=== PATIENT | female | born 1970 ===

== ENCOUNTER 2017-08-11 22:50 | Inpatient (IN) | payer MEDICAID, SELFPAY ==
--- NOTE | 2017-08-11 23:03 | ED PDOC ---
Arrival/HPI - General Time Seen by Provider: 08/11/17 22:57 Historian: Patient - History of Present Illness Narrative History of Present Illness (Text): 08/11/17 23:01 47 year old female, whose past medical history includes multiple pulmonary embolism (on Lovenox 130mg twice daily), kidney stones, Cholecystectomy, Appendectomy, and asthma, presents to the emergency department complaining of couple episodes of vomiting earlier today with some scanty amount of blood in vomit. Patient tonight is complaining of chest discomfort radiating to the back at times associated with occasional shortness of breath. Patient describes the chest discomfort as a sharp like sensation. She denies any drug use. Patient denies any fever, chills, nausea, diarrhea, urinary symptoms, back pain, neck pain, headache, dizziness, or any other complaints. PMD: Dr. Ofelia Babcock Symptom Onset: Gradual Symptom Course: Unchanged Activities at Onset: Light Context: Work Past Medical History - Provider Review Nursing Documentation Reviewed: Yes - Infectious Disease Hx of Infectious Diseases: None - Tetanus Immunization Tetanus Immunization: Up to Date - Cardiac Hx Atrial Fibrillation: No Hx Coronary Artery Disease: No Hx Cardiac Arrhythmia: No Hx Congestive Heart Failure: No Hx Hypertension: No Hx Mitral Valve Prolapse: No Hx Pacemaker: No Hx Peripheral Edema: No - Pulmonary Hx Asthma: Yes Hx Bronchitis: No Hx Chronic Obstructive Pulmonary Disease (COPD): No Hx Emphysema: No Hx Pneumonia: No Hx Pulmonary Embolism: Yes (x11) Hx Sleep Apnea: No - Neurological Hx Alzheimer's Disease: No Hx Dementia: No Hx Migraine: No Hx Multiple Sclerosis: No Hx Parkinson's Disease: No Hx Seizures: No Hx Transient Ischemic Attacks (TIA): No - HEENT Hx HEENT Disorder: No Hx Blind: No Hx Cataracts: No Hx Deafness: No Hx Difficulty Chewing: No Hx Epistaxis: No Hx Glaucoma: No Hx Macular Degeneration: No - Renal Hx Renal Disorder: Yes Hx Kidney Stones: Yes - Endocrine/Metabolic Hx Hyperthyroidism: No Hx Hypothyroidism: No - Hematological/Oncological Hx Anemia: No Hx Sickle Cell Disease: No - Integumentary Hx Dermatological Disorder: No Hx Basal Cell Carcinoma: No Hx Joe: No Hx Cellulitis: No Hx Eczema: No Hx Melanoma: No Hx Psoriasis: No Hx Squamous Cell Carcinoma: No - Musculoskeletal/Rheumatological Hx Arthritis: No Hx Fractures: No Hx Osteoporosis: No Hx Rheumatoid Arthritis: No - Gastrointestinal Hx Crohn's Disease: No Hx Diverticulitis: No Hx Gall Bladder Disease: Yes Hx Gastritis: No Hx Pancreatitis: No - Genitourinary/Gynecological Hx Sexually Transmitted Diseases: No - Psychiatric Hx Anxiety: No Hx Bipolar Disorder: No Hx Depression: No Hx Paranoia: No Hx Post Traumatic Stress Disorder: No Hx Schizophrenia: No Hx Substance Use: No - Surgical History Hx Appendectomy: Yes Hx Carotid Endarterectomy: No Hx Cholecystectomy: Yes Hx Coronary Artery Bypass Graft: No Hx Coronary Stent: No Hx Tonsillectomy: No - Anesthesia Hx Anesthesia: Yes Hx Anesthesia Reactions: No Hx Malignant Hyperthermia: No - Suicidal Assessment Feels Threatened In Home Enviroment: No Family/Social History - Physician Review Nursing Documentation Reviewed: Yes Family/Social History: No Known Family HX Smoking Status: Never Smoked Hx Alcohol Use: No Hx Substance Use: No Hx Substance Use Treatment: No Allergies/Home Meds Allergies/Adverse Reactions: Allergies iodixanol Allergy (Severe, Verified 07/18/17 00:04) SHORTNESS OF BREATH acetaminophen [From Percocet] Allergy (Verified 07/18/17 04:08) RASH Iodine and Iodide Containing Produc Allergy (Verified 07/18/17 00:04) SHORTNESS OF BREATH ketorolac Allergy (Verified 07/18/17 00:04) ITCHING morphine Allergy (Verified 07/18/17 00:04) RASH NSAIDS (Non-Steroidal Anti-Inflamma Allergy (Verified 07/18/17 00:04) ITCHING ondansetron Allergy (Verified 07/18/17 00:04) ITCHING oxycodone [From Percocet] Allergy (Verified 07/18/17 04:08) RASH Home Medications: Home Meds Medication Instructions Recorded Confirmed Enoxaparin [Lovenox] 120 mg SQ BID 08/12/17 08/12/17 Review of Systems - Physician Review All systems were reviewed & negative as marked: Yes - Review of Systems Constitutional: absent: Fevers, Other (Chills) Respiratory: SOB Cardiovascular: Chest Pain Gastrointestinal: Vomiting, Hematemesis. absent: Diarrhea, Nausea Genitourinary Female: absent: Dysuria, Frequency, Hematuria Musculoskeletal: absent: Back Pain, Neck Pain Neurological: absent: Headache, Dizziness Physical Exam Vital Signs Reviewed: Yes Vital Signs Temp Pulse Pulse Resp BP Pulse Ox 08/12/17 02:00 98 H 18 132/88 98 08/12/17 00:56 82 20 108/56 L 100 08/11/17 23:20 135 H 122/64 08/11/17 23:03 113 H 08/11/17 22:56 99.1 F 126 H 24 116/66 97 Temperature: Afebrile Blood Pressure: Normal Pulse: Tachycardic Respiratory Rate: Normal Appearance: Positive for: Well-Appearing, Non-Toxic, Comfortable Pain Distress: None Mental Status: Positive for: Alert and Oriented X 3 - Systems Exam Head: Present: Atraumatic, Normocephalic Pupils: Present: PERRL Extroacular Muscles: Present: EOMI Conjunctiva: Present: Normal Mouth: Present: Moist Mucous Membranes Neck: Present: Normal Range of Motion Respiratory/Chest: Present: Clear to Auscultation (Lungs clear bilaterally ), Good Air Exchange. No: Respiratory Distress, Accessory Muscle Use Cardiovascular: Present: Tachycardic. No: Murmurs Abdomen: Present: Normal Bowel Sounds. No: Tenderness, Distention, Peritoneal Signs, Rebound, Guarding Back: Present: Normal Inspection Upper Extremity: Present: Normal Inspection. No: Cyanosis, Edema Lower Extremity: Present: Normal Inspection. No: Edema, CALF TENDERNESS, Ryan' s Sign, Swelling Neurological: Present: GCS=15, CN II-XII Intact, Speech Normal Skin: Present: Warm, Dry, Normal Color. No: Rashes Psychiatric: Present: Alert, Oriented x 3, Normal Insight, Normal Concentration Medical Decision Making ED Course and Treatment: 08/11/17 23:02 Impression: 47 year old female presents complaining of couple episodes of vomiting earlier today with some hematemesis Patient tonight is complaining of chest discomfort radiating to the back at times associated with occasional shortness of breath. Differential Diagnosis included but are not limited to: Pulmonary Embolism VS CAD VS Pneumonia VS Asthma VS GI Bleed Plan: -- Labs -- EKG -- Chest X-ray -- Lopressor, Protonix Inj, Reglan, IV Fluids -- Lung Perf & Vent Scan -- Reassess and disposition Prior Visits: Notes and results from previous visits were reviewed. Patient has had similar symptoms in the recent past. Patient is unable to undergo CT scan of chest with IV Contrast due to the need of prior 24 hour medication. Progress Notes: Patient unable to undergo CT scan of chest with IV contrast due to need of prior 24 hour medication. Patient states she had negative VQ scans. 08/11/17 23:26 EKG shows Sinus Tachycardia at 130 BPM with LVH. Non-specific ST/T changes. Interpreted by me. 08/12/17 00:39 CXR Impression: As read by me, no acute process. 08/12/17 02:15 Cause discussed with Stucco Applicator and Dr. Newton Taylor who is aware and agrees with the plan. Accepts patient into hospitalist service for chest pain. EXAM: NM Lung Perfusion and Ventilation Scan Dictated and Authenticated by: Beckie Arevalo MD 08/12/2017 2:40 AM IMPRESSION: No acute findings. - Lab Interpretations Lab Results: 08/11/17 23:17 08/11/17 23:17 Lab Results 08/11/17 23:17: Sodium 141, Potassium 3.1 L, Chloride 105, Carbon Dioxide 19 L, Anion Gap 21 H, BUN 15, Creatinine 0.6 L, Est GFR ( Amer) > 60, Est GFR ( Non-Af Amer) > 60, Random Glucose 139 H, Calcium 9.6, Total Bilirubin 0.6, AST 25, ALT 25, Alkaline Phosphatase 67, Lactate Dehydrogenase 511, Total Creatine Kinase < 20 L, Troponin I < 0.01, Total Protein 7.2, Albumin 4.4, Globulin 2.8, Albumin/Globulin Ratio 1.6 08/11/17 23:17: WBC 13.7 H D, RBC 4.88, Hgb 11.4 L, Hct 35.7 L, MCV 73.2 L, MCH 23.4 L, MCHC 31.9, RDW 16.3 H, Plt Count 544 H, MPV 9.8 08/11/17 23:17: PT 12.1, INR 1.06, APTT 29.9, D-Dimer, Quantitative TNP I have reviewed the lab results: Yes - RAD Interpretation Radiology Orders: 08/11/17 23:02 CHEST PORTABLE [RAD] Stat 08/11/17 23:18 LUNG PERF & VENT SCAN [NM] Stat - EKG Interpretation Interpreted by ED Physician: Yes Type: 12 lead EKG - Medication Orders Current Medication Orders: Enoxaparin Sodium (Lovenox) 120 mg SC BID BRIGITTE PRN Reason: Protocol Sodium Chloride (Sodium Chloride 0.9%) 1,000 mls @ 100 mls/hr IV .Q10H BRIGITTE Last Admin: 08/11/17 23:48 Dose: 100 mls/hr eMAR Start Stop Document 08/11/17 23:48 LEOBARDO (Rec: 08/11/17 23:48 [id number][facility] Intravenous Solution Start Date 08/11/17 Start Time 23:48 Famotidine (Pepcid 20mg/50ml Premix) 50 mls @ 100 mls/hr IV Q12 BRIGITTE Discontinued Medications Metoclopramide HCl (Reglan) 10 mg IVP ONCE ONE Stop: 08/11/17 23:21 Last Admin: 08/11/17 23:47 Dose: 10 mg IVP Administration Document 08/11/17 23:47 LEOBARDO (Rec: 08/11/17 23:47 [id number] Charges for Administration # of IVP Administrations 1 Metoprolol Tartrate (Lopressor) 5 mg IVP STAT STA Stop: 08/11/17 23:10 Last Admin: 08/11/17 23:20 Dose: 5 mg IVP Administration Document 08/11/17 23:20 LEOBARDO (Rec: 08/11/17 23:46 [id number]) Charges for Administration # of IVP Administrations 1 MAR Pulse and Blood Pressure Document 08/11/17 23:20 LEOBARDO (Rec: 08/11/17 23:46 [id number]) Pulse Pulse Rate (60-90 beats/min) 135 Blood Pressure Blood Pressure (100/60-150/90 mm Hg) 122/64 Morphine Sulfate (Morphine) 2 mg IVP STAT STA Stop: 08/11/17 23:45 Last Admin: 08/11/17 23:54 Dose: 2 mg MAR Pain Assessment Document 08/11/17 23:54 LEOBARDO (Rec: 08/11/17 23:55 [facility] [id number]) Pain Reassessment Is this a pain reassessment? No IVP Administration Document 08/11/17 23:54 LEOBARDO (Rec: 08/11/17 23:55 [id number]) Charges for Administration # of IVP Administrations 1 Morphine Sulfate (Morphine) 2 mg IVP STAT STA Stop: 08/12/17 00:46 Last Admin: 08/12/17 00:53 Dose: 2 mg MAR Pain Assessment Document 08/12/17 00:53 LEOBARDO (Rec: 08/12/17 00:53 [id number]) Pain Reassessment Is this a pain reassessment? Yes IVP Administration Document 08/12/17 00:53 LEOBARDO (Rec: 08/12/17 00:53 [id number]) Charges for Administration # of IVP Administrations 1 Morphine Sulfate (Morphine) 2 mg IVP STAT STA Stop: 08/12/17 02:07 Last Admin: 08/12/17 02:14 Dose: 2 mg MAR Pain Assessment Document 08/12/17 02:14 LEOBARDO (Rec: 08/12/17 02:15 [id number]) Pain Reassessment Is this a pain reassessment? No IVP Administration Document 08/12/17 02:14 LEOBARDO (Rec: 08/12/17 02:15 [facility] [id number]) Charges for Administration # of IVP Administrations 1 Pantoprazole Sodium (Protonix Inj) 40 mg IVP ONCE STA Stop: 08/11/17 23:08 Last Admin: 08/11/17 23:46 Dose: 40 mg IVP Administration Document 08/11/17 23:46 LEOBARDO (Rec: 08/11/17 23:47 [facility] [id number]) Charges for Administration # of IVP Administrations 1 Potassium Chloride (K-Dur 20 Meq Er Tab) 40 meq PO STAT STA Stop: 08/12/17 00:39 Last Admin: 08/12/17 02:16 Dose: 40 meq - Scribe Statement The provider has reviewed the documentation as recorded by the Leon Hicks Provider Scribe Attestation: All medical record entries made by the Leon were at my direction and personally dictated by me. I have reviewed the chart and agree that the record accurately reflects my personal performance of the history, physical exam, medical decision making, and the department course for this patient. I have also personally directed, reviewed, and agree with the discharge instructions and disposition. Disposition/Present on Arrival - Present on Arrival Any Indicators Present on Arrival: No History of DVT/PE: Yes History of Uncontrolled Diabetes: No Urinary Catheter: No History of Decub. Ulcer: No History Surgical Site Infection Following: None - Disposition Have Diagnosis and Disposition been Completed?: Yes Diagnosis: Chest pain, Hematemesis/vomiting blood Disposition: HOSPITALIZED Disposition Time: 02:18 Patient Problems: Current Active Problems Problem Status Onset Chest pain Acute 10/22/13 Hematemesis/vomiting blood Acute Condition: STABLE
[2017-08-11] MEDS ORDERED: Metoprolol 1 mg/ml Inj IVP STA (23:09)
[2017-08-11] MEDS ORDERED: Morphine 4 mg/ml ISec IVP STA (23:44)
[2017-08-11] MEDS: Sodium Chloride 0.9% 1,000 ML IV SCH (23:48)
[2017-08-11] MEDS ORDERED: Morphine 4 mg/ml ISec ONE (23:50)
[2017-08-11 23:53] LABS: HEMOGLOBIN 11.4 g/dL (12.0-16.0); MEAN CELL VOLUME 73.2 fl (80.0-105.0); MEAN CORPUSCULAR HEMOGLOBIN 23.4 pg (25.0-35.0); MEAN CORPUSCULAR HGB CONC 31.9 g/dl (31.0-37.0); MEAN PLATELET VOLUME 9.8 fl (7.0-11.0); RBC 4.88 10^6/uL (3.5-6.1); RED CELL DISTRIBUTION WIDTH 16.3 % (11.5-14.5); WHITE BLOOD COUNT 13.7 10^3/ul (4.5-11.0)
[2017-08-12 00:04] LABS: ALB/GLOB RATIO 1.6 (1.1-1.8); ALBUMIN 4.4 g/dL (3.0-4.8); ALT/SGPT 25 U/L (7-56); AST/SGOT 25 U/L (14-36); BLOOD UREA NITROGEN 15 mg/dL (7-21); CALCIUM 9.6 mg/dL (8.4-10.5); GFR AFRICAN-AMERICAN > 60; GFR NON-AFRICAN AMERICAN > 60
[2017-08-12 00:07] LABS: INR 1.06 (0.93-1.08); PROTHROMBIN TIME 12.1 SECONDS (9.4-12.5)
[2017-08-12 00:08] LABS: PARTIAL THROMBOPLASTIN TIME 29.9 Seconds (25.1-36.5)
[2017-08-12 00:15] LABS: TROPONIN I < 0.01 ng/mL
[2017-08-12] MEDS ORDERED: Potassium Chloride 20 mEq ER Tab PO STA (00:38)
[2017-08-12] MEDS ORDERED: Morphine 4 mg/ml ISec IVP STA ×2 (00:45→02:06)
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
[2017-08-12 03:48] VITALS: BMI 48.4
[2017-08-12] MEDS: Morphine 4 mg/ml ISec IVP PRN ×4 (04:10→21:28)
[2017-08-12] MEDS ORDERED: Morphine 2 mg/ml ISec IM STA (08:49)
[2017-08-12] MEDS ORDERED: Morphine 4 mg/ml ISec IVP PRN (08:50)
--- NOTE | 2017-08-12 08:50 | RAD ---
HISTORY: pain COMPARISON: Chest 07/12/2014 FINDINGS: LUNGS: No active pulmonary disease. PLEURA: No significant pleural effusion identified, no pneumothorax apparent. CARDIOVASCULAR: Normal. OSSEOUS STRUCTURES: No significant abnormalities. VISUALIZED UPPER ABDOMEN: Normal. OTHER FINDINGS: Previously noted right subclavian central line has been removed IMPRESSION: No active disease.
[2017-08-12] MEDS: Sodium Chloride 0.9% 1,000 ML IV SCH ×2 (09:10→19:52)
[2017-08-12] MEDS ORDERED: Morphine 4 mg/ml ISec IV STA (09:12)
[2017-08-12] MEDS ORDERED: Morphine 4 mg/ml ISec IM STA (09:14)
[2017-08-12 09:16] LABS: BASO # 0.04 K/mm3 (0.0-2.0); BASO % 0.4 % (0.0-3.0); EOS # 0.5 (0.0-0.7); EOS % 4.3 % (1.5-5.0); GRAN # 7.52 (1.4-6.5); GRAN % 66.7 % (50.0-68.0); HEMOGLOBIN 10.3 g/dL (12.0-16.0); LYMPH % 17.4 % (22.0-35.0); MEAN CELL VOLUME 73.6 fl (80.0-105.0); MEAN CORPUSCULAR HEMOGLOBIN 23.2 pg (25.0-35.0); MEAN CORPUSCULAR HGB CONC 31.5 g/dl (31.0-37.0); MEAN PLATELET VOLUME 9.3 fl (7.0-11.0); MONO # 1.3 (0.1-0.6); MONO % 11.2 % (1.0-6.0); RBC 4.44 10^6/uL (3.5-6.1); RED CELL DISTRIBUTION WIDTH 16.4 % (11.5-14.5); WHITE BLOOD COUNT 11.3 10^3/ul (4.5-11.0)
[2017-08-12 09:26] LABS: IRON 34 ug/dL (45-180)
[2017-08-12 09:29] LABS: ALB/GLOB RATIO 1.5 (1.1-1.8); ALBUMIN 3.7 g/dL (3.0-4.8); ALT/SGPT 53 U/L (7-56); AST/SGOT 39 U/L (14-36); BLOOD UREA NITROGEN 11 mg/dL (7-21); CALCIUM 8.8 mg/dL (8.4-10.5); GFR AFRICAN-AMERICAN > 60; GFR NON-AFRICAN AMERICAN > 60
[2017-08-12 09:35] LABS: % IRON SATURATION 7 % (20-55); TOTAL IRON BINDING CAPACITY 456 ug/dL (265-497)
[2017-08-12 09:39] LABS: TROPONIN I < 0.01 ng/mL
[2017-08-12 09:46] LABS: INR 1.06 (0.93-1.08); PROTHROMBIN TIME 12.2 SECONDS (9.4-12.5)
--- NOTE | 2017-08-12 09:48 | CARD ---
APPROVED REPORT EKG Measurement Heart [id number] <Conclusion> Sinus tachycardia Left ventricular hypertrophy STTW changes c/w ischemia
--- NOTE | 2017-08-12 09:52 | CARD ---
APPROVED REPORT EKG Measurement Heart [id number] <Conclusion> Normal sinus rhythm Voltage criteria for left ventricular hypertrophy Improved repolarization c/w ECG 08/11/17
[2017-08-12] MEDS ORDERED: Famotidine 20mg/50ml 20 MG/50 ML BAG IV SCH (10:00)
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
[2017-08-12 12:16] LABS: FERRITIN 14.2 ng/mL
[2017-08-12 13:50] LABS: FOLATE 16.1 ng/mL
[2017-08-12] MEDS: Sucralfate 1 gm/10 ml Oral Susp UD PO SCH ×3 (14:15→21:28)
[2017-08-12] MEDS: Enoxaparin 120 mg Syringe SC SCH (21:27)
[2017-08-13] MEDS: Sodium Chloride 0.9% 1,000 ML IV SCH ×2 (05:40→16:15)
[2017-08-13] MEDS: Morphine 4 mg/ml ISec IVP PRN ×3 (07:25→19:32)
--- NOTE | 2017-08-13 09:35 | CARD ---
APPROVED REPORT EKG Measurement Heart [id number] [id number] <Conclusion> Normal sinus rhythm Voltage criteria for left ventricular hypertrophy No change
[2017-08-13] MEDS: Sucralfate 1 gm/10 ml Oral Susp UD PO SCH ×4 (10:02→22:12)
[2017-08-13] MEDS: Enoxaparin 120 mg Syringe SC SCH ×2 (10:02→22:12)
--- NOTE | 2017-08-13 14:41 | CP.PCM.PN ---
<Miriam Ramesh - Last Filed: 08/13/17 14:37> Subjective - Date & Time of Evaluation Date of Evaluation: 08/13/17 Time of Evaluation: 14:37 - Subjective Subjective: Miriam Ramesh, PGY1, Progress Note for Dr Spears: Patient seen and examined at bedside. Pt complains of persistent left sided chest pain, denies hemoptysis, cough, palpitations. States that its "likely from PE." States that she previously had low probability on V/Q scan, but turned out to be PE on CTA, therefore she requests to have CTA. Denies diaphoresis, sob, fevers, chills, dizziness, abdominal pain, swelling. Objective - Vital Signs/Intake and Output Vital Signs (last 24 hours): Temp Pulse Resp BP Pulse Ox 98.2 F 110 H 20 119/63 98 08/13/17 12:00 08/13/17 14:00 08/13/17 12:00 08/13/17 12:00 08/13/17 10:02 - Medications Medications: Current Medications Diphenhydramine HCl (Benadryl) 50 mg IVP ONCE ONE Stop: 08/14/17 12:01 Enoxaparin Sodium (Lovenox) 120 mg SC Q12 [facility] PRN Reason: Protocol Last Admin: 08/13/17 10:02 Dose: 120 mg Famotidine (Pepcid) 40 mg PO HS [facility] Last Admin: 08/12/17 21:28 Dose: 40 mg Sodium Chloride (Sodium Chloride 0.9%) 1,000 mls @ 100 mls/hr IV .Q10H [facility] Last Admin: 08/13/17 05:40 Dose: 100 mls/hr Metoclopramide HCl (Reglan) 5 mg IVP ACHS [facility] Last Admin: 08/13/17 11:58 Dose: 5 mg Morphine Sulfate (Morphine) 2 mg IVP Q6H PRN PRN Reason: Pain, severe (8-10) Last Admin: 08/13/17 13:35 Dose: 2 mg Pantoprazole Sodium (Protonix Inj) 40 mg IVP DAILY [facility] Last Admin: 08/13/17 10:02 Dose: 40 mg Prednisone (Prednisone Tab) 50 mg PO Q6H [facility] Stop: 08/14/17 12:01 Sucralfate (Carafate Oral Susp) 1 gm PO QID [facility] Last Admin: 08/13/17 13:35 Dose: 1 gm - Labs Labs: PT 12.2 SECONDS (9.4-12.5) 08/12/17 08:00 INR 1.06 (0.93-1.08) 08/12/17 08:00 APTT 29.9 Seconds (25.1-36.5) 08/11/17 23:17 - Constitutional Appears: Non-toxic, No Acute Distress - Head Exam Head Exam: ATRAUMATIC, NORMOCEPHALIC - Eye Exam Eye Exam: EOMI, PERRL, Scleral icterus. absent: Conjunctival injection, Nystagmus Pupil Exam: NORMAL ACCOMODATION, PERRL. absent: Fixed, Irregular, Unequal - ENT Exam ENT Exam: Mucous Membranes Moist - Neck Exam Neck Exam: Full ROM - Respiratory Exam Respiratory Exam: Clear to Ausculation Bilateral, NORMAL BREATHING PATTERN. absent: Accessory Muscle Use, Rhonchi, Wheezes, Stridor - Cardiovascular Exam Cardiovascular Exam: RRR, +S1, +S2. absent: Murmur - GI/Abdominal Exam GI & Abdominal Exam: Soft, Normal Bowel Sounds. absent: Firm, Guarding, Rigid, Tenderness, Mass, Organomegaly, Rebound - Extremities Exam Extremities Exam: Full ROM. absent: Calf Tenderness, Pedal Edema - Back Exam Back Exam: NORMAL INSPECTION - Neurological Exam Neurological Exam: Alert, Awake, Oriented x3 - Psychiatric Exam Psychiatric exam: Agitated - Skin Skin Exam: Dry, Normal Color, Warm Assessment and Plan - Assessment and Plan (Free Text) Assessment: 47 year old female with past medical history of pulmonary embolism, asthma, on Lovenox therapy at home, presents for chest pain, ACS ruled out. V/Q scan shows low probablity of PE, pt complains of persistent cp. Pt allergic to IV contrast dye, scheduled to be premedicated with prednisone 50 mg x3 and benadryl prior to CTA (at 1 PM; will need to follow up with in house radiologist on Monday at 8 AM for his approval): Chest Pain: 2/2 pain medication seeking vs PE, ruled out ACS - Patient with history of PE - EKG on presentation showing Sinus Tachycardia at 130 BPM with LVH. Non- specific ST/T changes - trops negx3 - Patient allergic to ASA - Morphine tapered down to 1mg Q6H PRN severe pain - Lovenox 120mg BID - Multiple PE reported by patient - Most recent hospitalization for PE was 01/2017 - VQ scan low probability. Scheduled for CTA tomorrow - Etiology undetermined by patient, previous work up includes but not limited to Antithrombin III levels normal (09/02/16) Protein C and S normal levels (07/11/16) Lupus anticoagulant not detected (09/2016) Factor V activity nml (09/02/2016) Hemoptysis: likely Elise shelia tear - resolved - GI consulted. states likely elise jamil tear as pt has history - prior EGD in 04/2017 in [place] showing gastritis - Sucralfate, pepcid Anemia - microcytic with elevated RDW - Iron studies show low iron, low normal ferritin, %sat<7% - iron deficiency anemia - MCV 73 - Hgb stable - previous thalassemia work up is negative - monitor - start feosol DVT ppx: Lovenox GI ppx: pepcid Case and plan discussed with attending Dr Spears. Miriam Ramesh, PGY1 <Ngoc Spears - Last Filed: 08/13/17 15:06> Objective - Vital Signs/Intake and Output Vital Signs (last 24 hours): Temp Pulse Resp BP Pulse Ox 98.2 F 110 H 20 119/63 98 08/13/17 12:00 08/13/17 14:00 08/13/17 12:00 08/13/17 12:00 08/13/17 10:02 - Medications Medications: Current Medications Diphenhydramine HCl (Benadryl) 50 mg IVP ONCE ONE Stop: 08/14/17 12:01 Enoxaparin Sodium (Lovenox) 120 mg SC Q12 [facility] PRN Reason: Protocol Last Admin: 08/13/17 10:02 Dose: 120 mg Famotidine (Pepcid) 40 mg PO HS [facility] Last Admin: 08/12/17 21:28 Dose: 40 mg Ferrous Sulfate (Feosol) 324 mg PO DAILY [facility] Sodium Chloride (Sodium Chloride 0.9%) 1,000 mls @ 100 mls/hr IV .Q10H [facility] Last Admin: 08/13/17 05:40 Dose: 100 mls/hr Metoclopramide HCl (Reglan) 5 mg IVP ACHS [facility] Last Admin: 08/13/17 11:58 Dose: 5 mg Morphine Sulfate (Morphine) 1 mg IVP Q6H PRN PRN Reason: Pain, severe (8-10) Prednisone (Prednisone Tab) 50 mg PO Q6H [facility] Stop: 08/14/17 12:01 Sucralfate (Carafate Oral Susp) 1 gm PO QID [facility] Last Admin: 08/13/17 13:35 Dose: 1 gm - Labs Labs: PT 12.2 SECONDS (9.4-12.5) 08/12/17 08:00 INR 1.06 (0.93-1.08) 08/12/17 08:00 APTT 29.9 Seconds (25.1-36.5) 08/11/17 23:17 Attending/Attestation - Attestation I have personally seen and examined this patient.: Yes I have fully participated in the care of the patient.: Yes I have reviewed all pertinent clinical information, including history, physical exam and plan: Yes Notes (Text): 08/13/17 14:58 47 year old female with past medical history of pulmonary embolism on lovenox and asthma who presented with complaint of chest pain. Serial cardiac enzymes are negative and ACS has been ruled out. VQ scan shows low probability for PE. Patient still complains of symptoms and is requested CTA. Report allergy and will need to be premedicated. She reported nausea and ?hematemesis earlier, now resolved. Continue with PPI and diet as tolerated. She was seen by GI who okayed for lovenox to be resumed. She reports she had a recent EGD earlier this year. Ngoc Spears MD Hospitalist.
[2017-08-13] MEDS ORDERED: DiphenhydrAMINE 50 mg/ml Inj IVP STA (22:24)
[2017-08-14] MEDS: Morphine 4 mg/ml ISec IVP PRN ×2 (01:30→08:13)
[2017-08-14] MEDS: Sodium Chloride 0.9% 1,000 ML IV SCH ×3 (01:31→11:49)
[2017-08-14 09:11] LABS: BASO # 0.01 K/mm3 (0.0-2.0); BASO % 0.2 % (0.0-3.0); GRAN # 5.89 (1.4-6.5); GRAN % 89.1 % (50.0-68.0); HEMOGLOBIN 11.3 g/dL (12.0-16.0); LYMPH # 0.7 (1.2-3.4); LYMPH % 10.4 % (22.0-35.0); MEAN CELL VOLUME 73.6 fl (80.0-105.0); MEAN CORPUSCULAR HEMOGLOBIN 23.3 pg (25.0-35.0); MEAN CORPUSCULAR HGB CONC 31.7 g/dl (31.0-37.0); MEAN PLATELET VOLUME 9.3 fl (7.0-11.0); MONO % 0.3 % (1.0-6.0); RBC 4.84 10^6/uL (3.5-6.1); RED CELL DISTRIBUTION WIDTH 16.2 % (11.5-14.5); WHITE BLOOD COUNT 6.6 10^3/ul (4.5-11.0)
[2017-08-14 09:25] LABS: ALB/GLOB RATIO 1.5 (1.1-1.8); ALT/SGPT 31 U/L (7-56); AST/SGOT 12 U/L (14-36); BLOOD UREA NITROGEN 7 mg/dL (7-21); CALCIUM 9.2 mg/dL (8.4-10.5); GFR AFRICAN-AMERICAN > 60; GFR NON-AFRICAN AMERICAN > 60
[2017-08-14 09:30] LABS: INR 1.06 (0.93-1.08); PARTIAL THROMBOPLASTIN TIME 29.9 Seconds (25.1-36.5); PROTHROMBIN TIME 12.2 SECONDS (9.4-12.5)
[2017-08-14] MEDS: Sucralfate 1 gm/10 ml Oral Susp UD PO SCH ×4 (09:57→22:42)
[2017-08-14] MEDS: Enoxaparin 120 mg Syringe SC SCH ×2 (09:57→22:43)
[2017-08-14] MEDS ORDERED: DiphenhydrAMINE 50 mg/ml Inj IVP ONE (12:00)
[2017-08-14] MEDS ORDERED: Morphine 2 mg/ml ISec IVP PRN (12:31)
[2017-08-14] MEDS ORDERED: Morphine 2 mg/ml ISec IVP ONE (13:19)
--- NOTE | 2017-08-14 14:40 | CON ---
DATE: 08/14/2017 HISTORY OF PRESENT ILLNESS: The patient is a 47-year-old woman who presents with nausea and vomiting. She also complains of occasional chest discomfort which is worse during inspiration. PAST MEDICAL HISTORY: Notable for documented pulmonary embolism, in which she has been treated with Lovenox at home. She denies previous cardiac history. No previous coronary artery disease. Her stress test done several years ago was unremarkable. The patient's past medical history is also notable for sedentary life as well as morbid obesity. Negative diabetes mellitus. Negative hypertension. SOCIAL HISTORY: She denies smoking. REVIEW OF SYSTEMS: A 14-point review of systems is reviewed in detail. No cardiac symptomatology is noted other than the chest pain. PHYSICAL EXAMINATION: VITAL SIGNS: Blood pressure is 107/75, heart rate in the 70s, normal sinus rhythm. NECK: Negative JVD. LUNGS: Without rales. HEART: S1, S2. EXTREMITIES: Without edema. LABORATORY DATA: Troponin's are negative x3. Hemoglobin is 11.3. IMPRESSION: 1. Atypical chest pain. 2. Nausea and vomiting. 3. History of pulmonary embolism. 4. Morbid obesity. 5. Anemia. PLAN: Given these findings, it is unlikely her chest pain is cardiac in origin. There is no evidence for acute coronary syndrome. We will discontinue telemetry today. Once her present issues are resolved, the patient would benefit from an outpatient stress test given her cardiac risk factors. I discussed this with the patient in detail, she is agreeable. Solo Martinez MD
--- NOTE | 2017-08-14 15:06 | NM ---
COMPARISON: Portable chest TECHNIQUE: 30.0 mCi technetium 99-m DTPA aerosol. 3.2 mCI technetium 99-m MAA administered intravenously. FINDINGS: VENTILATION COMPONENT: Normal. PERFUSION COMPONENT: Normal. The report concurs with the preliminary [facility] report IMPRESSION: Lowprobability ventilation perfusion scan for pulmonary embolism.
--- NOTE | 2017-08-14 16:21 | CARD ---
APPROVED REPORT EXAM: Two-dimensional and M-mode echocardiogram with Doppler and color Doppler. INDICATION Chest Pain 2D DIMENSIONS Left Atrium (2D)4.8 (1.6-4.0cm)IVSd1.1 (0.7-1.1cm) LVDd4.7 (3.9-5.9cm)PWd1.2 (0.7-1.1cm) LVDs3.3 (2.5-4.0cm)FS (%) 30.5 % LVEF (%)58.0 (>50%) M-Mode DIMENSIONS Aortic Root3.30 (2.2-3.7cm)Aortic Cusp Exc.1.90 (1.5-2.0cm) Aortic Valve AoV Peak Ynedonwy038.0cm/[place] Peak GR.14mmHg Mitral Valve MV E Rbppdfsj240.0cm/sMV A Eghrfwlk01.6cm/sE/A ratio1.1 TDI Lateral E' Peak V11.50cm/sMedial E' Peak V7.31cm/sE/Lateral E'8.9 E/Medial E'14.0 Pulmonary Valve PV Peak Mqelpceb04.5cm/sPV Peak Grad.3mmHg Tricuspid Valve TR Peak [id number]/sRAP [id number] Peak Gr.24mmHg [id number] LEFT VENTRICLE The left ventricle is normal size. There is normal left ventricular wall thickness. The left ventricular function is normal. The left ventricular ejection fraction is within the normal range. There is normal LV segmental wall motion. Transmitral Doppler flow pattern is abnormal. RIGHT VENTRICLE The right ventricle is normal size. There is normal right ventricular wall thickness. The right ventricular systolic function is normal. ATRIA The left atrium is mildly dilated. The right atrium is borderline dilated. AORTIC VALVE The aortic valve is mildly thickened. No aortic regurgitation is present. There is no aortic valvular stenosis. MITRAL VALVE The mitral valve is mildly thickened. There is no mitral valve regurgitation noted. There is no mitral valve stenosis. TRICUSPID VALVE There is trace to mild tricuspid regurgitation. There is mild pulmonary hypertension. PULMONIC VALVE There is trace pulmonic valvular regurgitation. GREAT VESSELS The aortic root is normal in size. The IVC is normal in size and collapses >50% with inspiration. PERICARDIAL EFFUSION There is no pericardial effusion. <Conclusion> The left ventricle is normal size. There is normal left ventricular wall thickness. The left ventricular function is normal. The left ventricular ejection fraction is within the normal range. There is normal LV segmental wall motion. There is mild pulmonary hypertension.
--- NOTE | 2017-08-14 16:53 | CP.PCM.PN ---
<Miriam Ramesh - Last Filed: 08/15/17 10:19> Subjective - Date & Time of Evaluation Date of Evaluation: 08/14/17 Time of Evaluation: 16:45 - Subjective Subjective: Miriam Ramesh, PGY1, Progress Note for Dr Reis: Patient seen and examined at bedside. Pt complains of persistent left sided chest pain, denies hemoptysis, cough, palpitations. Denies diaphoresis, sob, fevers, chills, dizziness, abdominal pain, swelling. Pt states that she wants more morphine for her pain. Even after cleared from cardio, Physical therapy, and medicine service, pt states that she needs pain meds and would like to stay the night and "leave tomorrow when her pain is better." Objective - Vital Signs/Intake and Output Vital Signs (last 24 hours): Temp Pulse Resp BP Pulse Ox 98.4 F 94 H 20 141/89 97 08/14/17 14:00 08/14/17 14:00 08/14/17 14:00 08/14/17 14:00 08/14/17 14:00 Intake and Output: 08/14/17 08/14/17 06:59 18:59 Intake Total 1480 Output Total 0 Balance 1480 - Medications Medications: Current Medications Enoxaparin Sodium (Lovenox) 120 mg SC Q12 [facility] PRN Reason: Protocol Last Admin: 08/14/17 09:57 Dose: 120 mg Famotidine (Pepcid) 40 mg PO HS [facility] Last Admin: 08/13/17 22:12 Dose: 40 mg Ferrous Sulfate (Feosol) 324 mg PO DAILY [facility] Last Admin: 08/14/17 09:57 Dose: 324 mg Sodium Chloride (Sodium Chloride 0.9%) 1,000 mls @ 100 mls/hr IV .Q10H [facility] Last Admin: 08/14/17 11:49 Dose: Not Given Metoclopramide HCl (Reglan) 5 mg PO ACHS [facility] Last Admin: 08/14/17 11:55 Dose: 5 mg Morphine Sulfate (Morphine) 1 mg IVP Q6H PRN PRN Reason: Pain, severe (8-10) Last Admin: 08/14/17 14:33 Dose: 1 mg Sucralfate (Carafate Oral Susp) 1 gm PO QID [facility] Last Admin: 08/14/17 14:24 Dose: 1 gm - Labs Labs: 08/14/17 09:00 08/14/17 09:00 PT 12.2 SECONDS (9.4-12.5) 08/14/17 09:00 INR 1.06 (0.93-1.08) 08/14/17 09:00 APTT 29.9 Seconds (25.1-36.5) 08/14/17 09:00 - Additional Findings Additional findings: - Constitutional Appears: Non-toxic, No Acute Distress - Head Exam Head Exam: ATRAUMATIC, NORMOCEPHALIC - Eye Exam Eye Exam: EOMI, PERRL, Scleral icterus. absent: Conjunctival injection, Nystagmus Pupil Exam: NORMAL ACCOMODATION, PERRL. absent: Fixed, Irregular, Unequal - ENT Exam ENT Exam: Mucous Membranes Moist - Neck Exam Neck Exam: Full ROM - Respiratory Exam Respiratory Exam: Clear to Ausculation Bilateral, NORMAL BREATHING PATTERN. absent: Accessory Muscle Use, Rhonchi, Wheezes, Stridor - Cardiovascular Exam Cardiovascular Exam: RRR, +S1, +S2. no chest wall tenderness. absent: Murmur - GI/Abdominal Exam GI & Abdominal Exam: Soft, Normal Bowel Sounds. absent: Firm, Guarding, Rigid, Tenderness, Mass, Organomegaly, Rebound - Extremities Exam Extremities Exam: Full ROM. absent: Calf Tenderness, Pedal Edema - Back Exam Back Exam: NORMAL INSPECTION - Neurological Exam Neurological Exam: Alert, Awake, Oriented x3 - Psychiatric Exam Psychiatric exam: Agitated - Skin Skin Exam: Dry, Normal Color, Warm Assessment and Plan - Assessment and Plan (Free Text) Assessment: 47 year old female with past medical history of pulmonary embolism, asthma, on Lovenox therapy at home, presents for chest pain, ACS ruled out. V/Q scan shows low probablity of PE, pt complains of persistent cp. Cardio consult obtained, prelim echo read shows EF 58%, RVSP 34mmHg, scheduled for outpatient stress test with Dr Martinez. Physical therapy evchristiano recommends home. Even when cleared by above services, pt complains of persistent chest pain. Given 2 mg morphine now, then will keep on tylenol. Pt states that she will go home tomorrow: Chest Pain: 2/2 pain medication seeking - Patient with history of PE - EKG on presentation showing Sinus Tachycardia at 130 BPM with LVH. Non- specific ST/T changes - trops negx4 - Patient allergic to ASA - Discontinue morphine, start tylenol. - Lovenox 120mg BID - Multiple PE reported by patient - VQ scan low probability. - Etiology undetermined by patient, previous work up includes but not limited to Antithrombin III levels normal (09/02/16) Protein C and S normal levels (07/11/16) Lupus anticoagulant not detected (09/2016) Factor V activity nml (09/02/2016) Hemoptysis: likely Elise shelia tear - resolved - GI consulted. states likely elise jamil tear as pt has history - prior EGD in 04/2017 in [place] showing gastritis - Sucralfate, pepcid - will avoid Gi tract irritating agents like NSAIDs Anemia - microcytic with elevated RDW - Iron studies show low iron, low normal ferritin, %sat<7% - iron deficiency anemia - MCV 73 - Hgb stable - previous thalassemia work up is negative - monitor - cont with feosol DVT ppx: Lovenox GI ppx: pepcid Case and plan discussed with attending Dr Reis. Miriam Ramesh, PGY1 <Salvatore Reis - Last Filed: 08/15/17 13:56> Objective - Vital Signs/Intake and Output Vital Signs (last 24 hours): Temp Pulse Resp BP Pulse Ox 97.6 F 70 20 121/71 95 08/15/17 06:00 08/15/17 06:00 08/15/17 06:00 08/15/17 06:00 08/15/17 06:00 Intake and Output: 08/15/17 08/15/17 06:59 18:59 Intake Total 840 100 Balance 840 100 - Medications Medications: Current Medications Acetaminophen (Tylenol 325mg Tab) 650 mg PO Q6H PRN PRN Reason: Pain, moderate (4-7) Enoxaparin Sodium (Lovenox) 120 mg SC Q12 [facility] PRN Reason: Protocol Last Admin: 08/15/17 10:45 Dose: 120 mg Famotidine (Pepcid) 40 mg PO HS [facility] Last Admin: 08/14/17 22:43 Dose: 40 mg Ferrous Sulfate (Feosol) 324 mg PO DAILY [facility] Last Admin: 08/15/17 10:45 Dose: 324 mg Metoclopramide HCl (Reglan) 5 mg PO ACHS [facility] Last Admin: 08/15/17 12:30 Dose: Not Given Sucralfate (Carafate Oral Susp) 1 gm PO QID [facility] Last Admin: 08/15/17 13:08 Dose: Not Given - Labs Labs: 08/14/17 09:00 08/14/17 09:00 PT 12.2 SECONDS (9.4-12.5) 08/14/17 09:00 INR 1.06 (0.93-1.08) 08/14/17 09:00 APTT 29.9 Seconds (25.1-36.5) 08/14/17 09:00 Attending/Attestation - Attestation I have personally seen and examined this patient.: Yes I have fully participated in the care of the patient.: Yes I have reviewed all pertinent clinical information, including history, physical exam and plan: Yes Notes (Text): 08/15/17 13:50 attending note; patient seen and examined with resident. Patient is resting comfortably. Not in any acute distress. Still asking for increasing Dose of morphine. Patient is a 47 year old female with past medical history of pulmonary embolism on lovenox and asthma who presented with complaint of chest pain. Serial cardiac enzymes are negative and ACS has been ruled out. VQ scan shows low probability for PE. patient has been requesting for CT angiogram. Since the patient is allergic to contrast dye we will defer the test. Also patient is already on treatment dose of Lovenox. CTA would not alter the management. The patient giving information about how she is getting her Lovenox. According to the patient She gets Lovenox from [facility]. She has one month supply at home. Does not remember the The name of the doctor treating her at [facility]. old chart reviewed. Patient had multiple admissions in [facility]. Documented history of opiate seeking behavior. Patient does not have a primary care doctor now. patient is also complaining of hematemesis. not seen by medical staff. cleared by GI. She reports she had a recent EGD earlier this year. multiple complaints. Refused any psychiatric illness. Cardiac enzymes negative. Echocardiogram normal. Cardiology evaluation appreciated. Outpatient stress test scheduled. Patient is not tachycardic or hypoxic. Not in any acute distress. Patient will be discharged home with follow up with [facility]. History is very unreliable. Old chart showed history of PE in 05/2013. since then multiple VQ scan and CTA were negative.
--- NOTE | 2017-08-14 16:55 | CP.PCM.DIS ---
Provider - Provider Date of Admission: 08/13/17 14:27 Attending physician: Ngoc Spears MD Primary care physician: Yayo Babcock MD Time Spent in preparation of Discharge (in minutes): 130 Hospital Course - Lab Results Lab Results: Most Recent Lab Values WBC 6.6 10^3/ul (4.5-11.0) D 08/14/17 09:00 RBC 4.84 10^6/uL (3.5-6.1) 08/14/17 09:00 Hgb 11.3 g/dL (12.0-16.0) L 08/14/17 09:00 Hct 35.6 % (36.0-48.0) L 08/14/17 09:00 MCV 73.6 fl (80.0-105.0) L 08/14/17 09:00 MCH 23.3 pg (25.0-35.0) L 08/14/17 09:00 MCHC 31.7 g/dl (31.0-37.0) 08/14/17 09:00 RDW 16.2 % (11.5-14.5) H 08/14/17 09:00 Plt Count 501 10^3/uL (120.0-450.0) H 08/14/17 09:00 MPV 9.3 fl (7.0-11.0) 08/14/17 09:00 Gran % 89.1 % (50.0-68.0) H 08/14/17 09:00 Lymph % (Auto) 10.4 % (22.0-35.0) L 08/14/17 09:00 [place] % (Auto) 0.3 % (1.0-6.0) L 08/14/17 09:00 Eos % (Auto) 0.0 % (1.5-5.0) L 08/14/17 09:00 Baso % (Auto) 0.2 % (0.0-3.0) 08/14/17 09:00 Gran # 5.89 (1.4-6.5) 08/14/17 09:00 Lymph # (Auto) 0.7 (1.2-3.4) L 08/14/17 09:00 [place] # (Auto) 0.0 (0.1-0.6) L 08/14/17 09:00 Eos # (Auto) 0.0 (0.0-0.7) 08/14/17 09:00 Baso # (Auto) 0.01 K/mm3 (0.0-2.0) 08/14/17 09:00 PT 12.2 SECONDS (9.4-12.5) 08/14/17 09:00 INR 1.06 (0.93-1.08) 08/14/17 09:00 APTT 29.9 Seconds (25.1-36.5) 08/14/17 09:00 D-Dimer, Quantitative TNP 08/11/17 23:17 Sodium 142 mmol/L (132-148) 08/14/17 09:00 Potassium 4.4 mmol/L (3.6-5.0) 08/14/17 09:00 Chloride 109 mmol/L (98-107) H 08/14/17 09:00 Carbon Dioxide 22 mmol/L (21-33) 08/14/17 09:00 Anion Gap 15 (10-20) 08/14/17 09:00 BUN 7 mg/dL (7-21) 08/14/17 09:00 Creatinine 0.5 mg/dl (0.7-1.2) L 08/14/17 09:00 Est GFR ( Amer) > 60 08/14/17 09:00 Est GFR (Non-Af Amer) > 60 08/14/17 09:00 Random Glucose 170 mg/dL (70-110) H 08/14/17 09:00 Calcium 9.2 mg/dL (8.4-10.5) 08/14/17 09:00 Iron 34 ug/dL (45-180) L 08/12/17 08:00 TIBC 456 ug/dL (265-497) 08/12/17 08:00 % Saturation 7 % (20-55) L 08/12/17 08:00 Transferrin 386.30 mg/dL (206-381) H 08/12/17 08:00 Ferritin 14.2 ng/mL 08/12/17 08:00 Total Bilirubin 0.4 mg/dL (0.2-1.3) 08/14/17 09:00 AST 12 U/L (14-36) L D 05/14/18 09:00 ALT 31 U/L (7-56) 08/14/17 09:00 Alkaline Phosphatase 72 U/L (38-126) 08/14/17 09:00 Lactate Dehydrogenase 511 U/L (333-699) 08/11/17 23:17 Total Creatine Kinase < 20 U/L (35-230) L 08/11/17 23:17 Troponin I < 0.01 ng/mL 08/14/17 10:52 Total Protein 6.6 g/dL (5.8-8.3) 08/14/17 09:00 Albumin 4.0 g/dL (3.0-4.8) 08/14/17 09:00 Globulin 2.6 gm/dL 08/14/17 09:00 Albumin/Globulin Ratio 1.5 (1.1-1.8) 08/14/17 09:00 Vitamin B12 306 pg/mL (239-931) 08/12/17 08:00 Folate 16.1 ng/mL 08/12/17 08:00 Discharge Exam - Head Exam Head Exam: ATRAUMATIC, NORMOCEPHALIC Discharge Plan - Discharge Medications Prescriptions: Ferrous Sulfate [Feosol] 324 mg PO DAILY 14 Days ect - Follow Up Plan Condition: STABLE Disposition: HOME/ ROUTINE Instructions: Gastrointestinal Bleeding (DC), Chest Pain (DC), Anemia (DC), Anemia (GEN) Additional Instructions: 1. Follow up with Dr. Martinez, Appointment Clerk, for stress test in 2 weeks. 2. Follow up with Primary care doctor Dr. Babcock/[facility] in 1 week for your lovenox and management of other chronic conditions. You have a supply of lovenox for 30 days at home. 3. You were found to have mild iron deficiency anemia, you are given a script for iron tablets. 4. Return to ER for any worsening of symptoms. Referrals: Yayo Babcock MD [Primary Care Provider] -
[2017-08-14] MEDS ORDERED: Morphine 2 mg/ml ISec IVP STA (17:32)
[2017-08-15 07:41] VITALS: BP 121/71; PULSE 70; RESP 20; TEMP 97.6; O2SAT 95
--- NOTE | 2017-08-15 10:19 | CP.PCM.DIS ---
<Miriam Ramesh - Last Filed: 08/15/17 11:53> Provider - Provider Date of Admission: 08/13/17 14:27 Attending physician: Ngoc Spears MD Primary care physician: Yayo Babcock MD Consults: GER Martinez Time Spent in preparation of Discharge (in minutes): 120 Diagnosis - Discharge Diagnosis (1) Chest discomfort Status: Active (2) Chest pain Status: Acute Onset Date: 10/22/13 (3) Hematemesis/vomiting blood Status: Acute (4) Elise-Jamil tear Status: Acute (5) Anemia Status: Active Hospital Course - Lab Results Lab Results: Most Recent Lab Values WBC 6.6 10^3/ul (4.5-11.0) D 08/14/17 09:00 RBC 4.84 10^6/uL (3.5-6.1) 08/14/17 09:00 Hgb 11.3 g/dL (12.0-16.0) L 08/14/17 09:00 Hct 35.6 % (36.0-48.0) L 08/14/17 09:00 MCV 73.6 fl (80.0-105.0) L 08/14/17 09:00 MCH 23.3 pg (25.0-35.0) L 08/14/17 09:00 MCHC 31.7 g/dl (31.0-37.0) 08/14/17 09:00 RDW 16.2 % (11.5-14.5) H 08/14/17 09:00 Plt Count 501 10^3/uL (120.0-450.0) H 08/14/17 09:00 MPV 9.3 fl (7.0-11.0) 08/14/17 09:00 Gran % 89.1 % (50.0-68.0) H 08/14/17 09:00 Lymph % (Auto) 10.4 % (22.0-35.0) L 08/14/17 09:00 [place] % (Auto) 0.3 % (1.0-6.0) L 08/14/17 09:00 Eos % (Auto) 0.0 % (1.5-5.0) L 08/14/17 09:00 Baso % (Auto) 0.2 % (0.0-3.0) 08/14/17 09:00 Gran # 5.89 (1.4-6.5) 08/14/17 09:00 Lymph # (Auto) 0.7 (1.2-3.4) L 08/14/17 09:00 [place] # (Auto) 0.0 (0.1-0.6) L 08/14/17 09:00 Eos # (Auto) 0.0 (0.0-0.7) 08/14/17 09:00 Baso # (Auto) 0.01 K/mm3 (0.0-2.0) 08/14/17 09:00 PT 12.2 SECONDS (9.4-12.5) 08/14/17 09:00 INR 1.06 (0.93-1.08) 08/14/17 09:00 APTT 29.9 Seconds (25.1-36.5) 08/14/17 09:00 D-Dimer, Quantitative TNP 08/11/17 23:17 Sodium 142 mmol/L (132-148) 08/14/17 09:00 Potassium 4.4 mmol/L (3.6-5.0) 08/14/17 09:00 Chloride 109 mmol/L (98-107) H 08/14/17 09:00 Carbon Dioxide 22 mmol/L (21-33) 08/14/17 09:00 Anion Gap 15 (10-20) 08/14/17 09:00 BUN 7 mg/dL (7-21) 08/14/17 09:00 Creatinine 0.5 mg/dl (0.7-1.2) L 08/14/17 09:00 Est GFR ( Amer) > 60 08/14/17 09:00 Est GFR (Non-Af Amer) > 60 08/14/17 09:00 Random Glucose 170 mg/dL (70-110) H 08/14/17 09:00 Calcium 9.2 mg/dL (8.4-10.5) 08/14/17 09:00 Iron 34 ug/dL (45-180) L 08/12/17 08:00 TIBC 456 ug/dL (265-497) 08/12/17 08:00 % Saturation 7 % (20-55) L 08/12/17 08:00 Transferrin 386.30 mg/dL (206-381) H 08/12/17 08:00 Ferritin 14.2 ng/mL 08/12/17 08:00 Total Bilirubin 0.4 mg/dL (0.2-1.3) 08/14/17 09:00 AST 12 U/L (14-36) L D 08/14/17 09:00 ALT 31 U/L (7-56) 08/14/17 09:00 Alkaline Phosphatase 72 U/L (38-126) 08/14/17 09:00 Lactate Dehydrogenase 511 U/L (333-699) 08/11/17 23:17 Total Creatine Kinase < 20 U/L (35-230) L 08/11/17 23:17 Troponin I < 0.01 ng/mL 08/14/17 10:52 Total Protein 6.6 g/dL (5.8-8.3) 08/14/17 09:00 Albumin 4.0 g/dL (3.0-4.8) 08/14/17 09:00 Globulin 2.6 gm/dL 08/14/17 09:00 Albumin/Globulin Ratio 1.5 (1.1-1.8) 08/14/17 09:00 Vitamin B12 306 pg/mL (239-931) 08/12/17 08:00 Folate 16.1 ng/mL 08/12/17 08:00 - Hospital Course Hospital Course: 47 year old female with past medical history of pulmonary embolism, asthma, on Lovenox therapy at home, ashtma, IV contrast allergy (previously requiring intubation), presents for chest pain, ACS ruled out with 4 negative troponins and no ST/ wave abnormalities on serial EKGs. V/Q scan showed low probablity of PE, pt complained of persistent cp. Cardio consult obtained, echo read shows EF 58%, RVSP 34mmHg, scheduled pt for outpatient stress test with Dr Martinez. Physical therapy evchristiano recommends home. Pt initially also complained of hemoptysis/hematemesis, has a history of Elise jamil tear, Gi consulted, hgb stable, no acute GI intervention necessary. Recent EGD at [facility] showed gastritis. Pt chronically requested excess pain medications during hospital stay. Pt discharged home with following instructions: 1. Follow up with Dr. Martinez, [employer] Faculty Member, for stress test in 2 weeks. 2. Follow up with Primary care doctor Dr. Babcock/[facility] clinic in 1 week for your lovenox and management of other chronic conditions. You have a supply of lovenox for 30 days at home. 3. You were found to have mild iron deficiency anemia, you are given a script for iron tablets. 4. Return to ER for any worsening of symptoms. Please note that this is a brief summary of events. For full course/details, please see entire chart. Case seen and discussed with Dr Reis Discharge Exam - Head Exam Head Exam: ATRAUMATIC, NORMOCEPHALIC - Eye Exam Eye Exam: EOMI, PERRL. absent: Conjunctival injection, Nystagmus, Scleral icterus Pupil Exam: NORMAL ACCOMODATION, PERRL. absent: Fixed, Irregular, Miosis, Unequal - ENT Exam ENT Exam: Mucous Membranes Moist - Neck Exam Neck exam: Full Rom - Respiratory Exam Respiratory Exam: Clear to PA & Lateral, NORMAL BREATHING PATTERN. absent: Chest Wall Tenderness, Rales, Rhonchi, Wheezes, Respiratory Distress, Stridor - Cardiovascular Exam Cardiovascular Exam: RRR, +S1, +S2. absent: Systolic Murmur - GI/Abdominal Exam GI & Abdominal Exam: Normal Bowel Sounds, Soft. absent: Distended, Firm, Guarding, Mass, Organomegaly, Pulsatile Mass, Rebound, Rigid, Tenderness - Extremities Exam Extremities exam: normal inspection - Back Exam Back exam: NORMAL INSPECTION - Neurological Exam Neurological exam: Alert, Oriented x3 - Psychiatric Exam Psychiatric exam: Normal Affect, Normal Mood - Skin Skin Exam: Dry, Normal Color, Warm Discharge Plan - Discharge Medications Prescriptions: Famotidine [Pepcid] 40 mg PO HS #20 tab Ferrous Sulfate [Feosol] 324 mg PO DAILY 14 Days ect Sucralfate [Carafate Oral Susp] 1 gm PO QID #20 [facility] - Follow Up Plan Condition: STABLE Disposition: HOME/ ROUTINE Instructions: Gastrointestinal Bleeding (DC), Chest Pain (DC), Anemia (DC), Anemia (GEN) Additional Instructions: 1. Follow up with Dr. Martinez, [employer] Faculty Member, for stress test in 2 weeks. 2. Follow up with Primary care doctor Dr. Babcock/[facility] clinic in 1 week for your lovenox and management of other chronic conditions. You have a supply of lovenox for 30 days at home. 3. You were found to have mild iron deficiency anemia, you are given a script for iron tablets. 4. Return to ER for any worsening of symptoms. Referrals: Yayo Babcock MD [Primary Care Provider] - <Salvatore Reis - Last Filed: 08/15/17 13:58> Provider - Provider Date of Admission: 08/13/17 14:27 Attending physician: Ngoc Spears MD Primary care physician: Yayo Babcock MD Hospital Course - Lab Results Lab Results: Most Recent Lab Values WBC 6.6 10^3/ul (4.5-11.0) D 08/14/17 09:00 RBC 4.84 10^6/uL (3.5-6.1) 08/14/17 09:00 Hgb 11.3 g/dL (12.0-16.0) L 08/14/17 09:00 Hct 35.6 % (36.0-48.0) L 08/14/17 09:00 MCV 73.6 fl (80.0-105.0) L 08/14/17 09:00 MCH 23.3 pg (25.0-35.0) L 08/14/17 09:00 MCHC 31.7 g/dl (31.0-37.0) 08/14/17 09:00 RDW 16.2 % (11.5-14.5) H 08/14/17 09:00 Plt Count 501 10^3/uL (120.0-450.0) H 08/14/17 09:00 MPV 9.3 fl (7.0-11.0) 08/14/17 09:00 Gran % 89.1 % (50.0-68.0) H 08/14/17 09:00 Lymph % (Auto) 10.4 % (22.0-35.0) L 08/14/17 09:00 [place] % (Auto) 0.3 % (1.0-6.0) L 08/14/17 09:00 Eos % (Auto) 0.0 % (1.5-5.0) L 08/14/17 09:00 Baso % (Auto) 0.2 % (0.0-3.0) 08/14/17 09:00 Gran # 5.89 (1.4-6.5) 08/14/17 09:00 Lymph # (Auto) 0.7 (1.2-3.4) L 08/14/17 09:00 [place] # (Auto) 0.0 (0.1-0.6) L 08/14/17 09:00 Eos # (Auto) 0.0 (0.0-0.7) 08/14/17 09:00 Baso # (Auto) 0.01 K/mm3 (0.0-2.0) 08/14/17 09:00 PT 12.2 SECONDS (9.4-12.5) 08/14/17 09:00 INR 1.06 (0.93-1.08) 08/14/17 09:00 APTT 29.9 Seconds (25.1-36.5) 08/14/17 09:00 D-Dimer, Quantitative TNP 08/11/17 23:17 Sodium 142 mmol/L (132-148) 08/14/17 09:00 Potassium 4.4 mmol/L (3.6-5.0) 08/14/17 09:00 Chloride 109 mmol/L (98-107) H 08/14/17 09:00 Carbon Dioxide 22 mmol/L (21-33) 08/14/17 09:00 Anion Gap 15 (10-20) 08/14/17 09:00 BUN 7 mg/dL (7-21) 08/14/17 09:00 Creatinine 0.5 mg/dl (0.7-1.2) L 08/14/17 09:00 Est GFR ( Amer) > 60 08/14/17 09:00 Est GFR (Non-Af Amer) > 60 08/14/17 09:00 Random Glucose 170 mg/dL (70-110) H 08/14/17 09:00 Calcium 9.2 mg/dL (8.4-10.5) 08/14/17 09:00 Iron 34 ug/dL (45-180) L 08/12/17 08:00 TIBC 456 ug/dL (265-497) 08/12/17 08:00 % Saturation 7 % (20-55) L 08/12/17 08:00 Transferrin 386.30 mg/dL (206-381) H 08/12/17 08:00 Ferritin 14.2 ng/mL 08/12/17 08:00 Total Bilirubin 0.4 mg/dL (0.2-1.3) 08/14/17 09:00 AST 12 U/L (14-36) L D 08/14/17 09:00 ALT 31 U/L (7-56) 08/14/17 09:00 Alkaline Phosphatase 72 U/L (38-126) 08/14/17 09:00 Lactate Dehydrogenase 511 U/L (333-699) 08/11/17 23:17 Total Creatine Kinase < 20 U/L (35-230) L 08/11/17 23:17 Troponin I < 0.01 ng/mL 08/14/17 10:52 Total Protein 6.6 g/dL (5.8-8.3) 08/14/17 09:00 Albumin 4.0 g/dL (3.0-4.8) 08/14/17 09:00 Globulin 2.6 gm/dL 08/14/17 09:00 Albumin/Globulin Ratio 1.5 (1.1-1.8) 08/14/17 09:00 Vitamin B12 306 pg/mL (239-931) 08/12/17 08:00 Folate 16.1 ng/mL 08/12/17 08:00 Attending/Attestation - Attestation I have personally seen and examined this patient.: Yes I have fully participated in the care of the patient.: Yes I have reviewed all pertinent clinical information, including history, physical exam and plan: Yes Notes (Text): 08/15/17 13:57 attending note; the patient did not go home yesterday because of pain. Got 1 dose of morphine Last evening. IV morphine was stopped. Patient has been sleeping since last night. Had breakfast. Patient is a 47 year old female with past medical history of pulmonary embolism on lovenox and asthma who presented with complaint of chest pain. Serial cardiac enzymes are negative and ACS has been ruled out. VQ scan shows low probability for PE. patient has been requesting for CT angiogram. Since the patient is allergic to contrast dye we will defer the test. Also patient is already on treatment dose of Lovenox. CTA would not alter the management. The patient giving information about how she is getting her Lovenox. According to the patient She gets Lovenox from [facility]. She has one month supply at home. Does not remember the The name of the doctor treating her at [facility]. old chart reviewed. Patient had multiple admissions in [facility]. Documented history of opiate seeking behavior. Patient does not have a primary care doctor now. patient is also complaining of hematemesis. not seen by medical staff. cleared by GI. She reports she had a recent EGD earlier this year. multiple complaints. Refused any psychiatric illness. Cardiac enzymes negative. Echocardiogram normal. Cardiology evaluation appreciated. Outpatient stress test scheduled. Patient is not tachycardic or hypoxic. Not in any acute distress. History is very unreliable. Old chart showed history of PE in 05/2013. since then multiple VQ scan and CTA were negative. Patient will be discharged home today.
[2017-08-15] MEDS: Sucralfate 1 gm/10 ml Oral Susp UD PO SCH ×2 (10:45→13:08)
[2017-08-15] MEDS: Enoxaparin 120 mg Syringe SC SCH (10:45)
--- NOTE | 2017-08-15 14:19 | PN ---
DATE: 08/15/2017 CARDIOLOGY FOLLOWUP SUBJECTIVE: The patient is chest pain free. The patient has had history of pulmonary embolism in the past. PHYSICAL EXAMINATION: VITAL SIGNS: Blood pressure is 121/71, heart rate is in the 70s. NECK: Negative JVD. LUNGS: Without rales. HEART: S1, S2. EXTREMITIES: Without edema. LABORATORY DATA: Hemoglobin 11.3. Troponins are negative x3. IMPRESSION: 1. Atypical chest pain. 2. History of pulmonary embolism. 3. Obesity. 4. Anemia. Given these findings, there is no evidence for acute coronary syndrome. The patient is scheduled for discharge. An outpatient stress test has been scheduled for the patient. Solo Martinez MD
== END 2017-08-15 14:11 | disposition home or self-care (01) | DRG 143 ==
LOC: ED 22:50 → ERH 08-12 02:16 → 2RNO 08-12 03:17 → OBSVTOIN 08-13 14:27 → 5RNO 08-14 13:48
PROVIDERS: ADMIT Internal Medicine; ATTEND Internal Medicine
DX: R07.89 Other chest pain (principal); N18.9 Chronic kidney disease, unspecified; K92.0 Hematemesis; D50.9 Iron deficiency anemia, unspecified; E66.01 Morbid (severe) obesity due to excess calories; J45.909 Unspecified asthma, uncomplicated; K29.70 Gastritis, unspecified, without bleeding; Z79.01 Long term (current) use of anticoagulants; Z86.711 Personal history of pulmonary embolism; Z87.442 Personal history of urinary calculi; Z90.49 Acquired absence of other specified parts of digestive tract; Z88.6 Allergy status to analgesic agent; Z91.041 Radiographic dye allergy status; Z88.5 Allergy status to narcotic agent; Z82.0 Family history of epilepsy and other diseases of the nervous system; Z82.49 Family history of ischemic heart disease and other diseases of the circulatory system; Z87.19 Personal history of other diseases of the digestive system; Z88.8 Allergy status to other drugs, medicaments and biological substances; R11.2 Nausea with vomiting, unspecified; Z68.42 Body mass index [BMI] 45.0-49.9, adult; I27.20 Pulmonary hypertension, unspecified; R00.0 Tachycardia, unspecified

== ENCOUNTER 2017-12-15 19:19 | Inpatient (IN) | payer MEDICAID, OTHER ==
[2017-12-15 19:24] VITALS: BMI 47.4
--- NOTE | 2017-12-15 21:37 | ED PDOC ---
Arrival/HPI <Twin Singh - Last Filed: 12/15/17 23:21> - General Historian: Patient - History of Present Illness Symptom Onset: Gradual Symptom Course: Worsening Activities at Onset: Light Context: Home <Laila Avila PA-C - Last Filed: 12/16/17 02:29> - General Chief Complaint: Chest Pain Time Seen by Provider: 12/15/17 19:43 - History of Present Illness Narrative History of Present Illness (Text): 12/15/17 21:32 47 year old female, whose past medical history includes pulmonary embolisms on lovanox, who presents to the Emergency department complaining of worsening chest pain. Patient states she was recently seen at [facility] on 12/09/2017 for similar symptoms and was given a VQ scan. Results showed mild-moderate mismatch in the left lower lobe, leading to suspicion of possible pulmonary embolism. Patient was not admitted to [facility] since patient was already on lovanox. Patient states pain occurs in the center of her chest. Patient denies any fever, chills, cough, trauma, sob, injury, leg pain, or any other complaints. (Laila Avila PA-C) Past Medical History - Provider Review Nursing Documentation Reviewed: Yes - Infectious Disease Hx of Infectious Diseases: None - Tetanus Immunization Tetanus Immunization: Up to Date - Cardiac Hx Cardiac Disorders: No Hx Atrial Fibrillation: No Hx Cardiac Arrhythmia: No Hx Congestive Heart Failure: No - Pulmonary Hx Respiratory Disorders: Yes Hx Asthma: Yes Hx Bronchitis: No Hx Chronic Obstructive Pulmonary Disease (COPD): No Hx Emphysema: No Hx Pneumonia: No Hx Pulmonary Embolism: Yes (x11) Hx Sleep Apnea: No - Neurological Hx Neurological Disorder: No - HEENT Hx HEENT Disorder: No - Renal Hx Renal Disorder: Yes Hx Kidney Stones: Yes - Endocrine/Metabolic Hx Endocrine Disorders: No - Hematological/Oncological Hx Blood Disorders: No - Integumentary Hx Dermatological Disorder: No - Musculoskeletal/Rheumatological Hx Musculoskeletal Disorders: No Hx Falls: No - Gastrointestinal Hx Gastrointestinal Disorders: No - Genitourinary/Gynecological Hx Genitourinary Disorders: No - Psychiatric Hx Psychophysiologic Disorder: No Hx Substance Use: No - Surgical History Hx Appendectomy: Yes Hx Carotid Endarterectomy: No Hx Cholecystectomy: Yes Hx Coronary Artery Bypass Graft: No Hx Coronary Stent: No Hx Splenectomy: Yes - Anesthesia Hx Anesthesia: Yes Hx Anesthesia Reactions: No Hx Malignant Hyperthermia: No - Suicidal Assessment Feels Threatened In Home Enviroment: No <Laila Avila PA-C - Last Filed: 12/16/17 02:29> Family/Social History - Physician Review Nursing Documentation Reviewed: Yes Family/Social History: Unknown Family HX Smoking Status: Never Smoked Hx Alcohol Use: No Hx Substance Use: No Hx Substance Use Treatment: No <Laila Avila PA-C - Last Filed: 12/16/17 02:29> Allergies/Home Meds <Twin Singh - Last Filed: 12/15/17 23:21> <Laila Avila PA-C - Last Filed: 12/16/17 02:29> Allergies/Adverse Reactions: Allergies iodixanol Allergy (Severe, Verified 11/10/17 21:08) SHORTNESS OF BREATH acetaminophen [From Percocet] Allergy (Verified 11/10/17 21:08) RASH ibuprofen [From Motrin] Allergy (Verified 11/10/17 21:08) SHORTNESS OF BREATH Iodine and Iodide Containing Produc Allergy (Verified 11/10/17 21:08) SHORTNESS OF BREATH ketorolac Allergy (Verified 11/10/17 21:08) ITCHING NSAIDS (Non-Steroidal Anti-Inflamma Allergy (Verified 11/10/17 21:08) ITCHING ondansetron Allergy (Verified 11/10/17 21:08) ITCHING oxycodone [From Percocet] Allergy (Verified 11/10/17 21:08) RASH Home Medications: Home Meds Medication Instructions Recorded Confirmed Enoxaparin [Lovenox] 120 mg SC BID 12/15/17 12/15/17 Review of Systems - Physician Review All systems were reviewed & negative as marked: Yes - Review of Systems Constitutional: Normal Eyes: Normal ENT: Normal Respiratory: Normal. absent: SOB, Cough Cardiovascular: Chest Pain Gastrointestinal: Normal. absent: Abdominal Pain Genitourinary Female: Normal. absent: Dysuria, Frequency Musculoskeletal: Normal. absent: Back Pain, Neck Pain Skin: Normal. absent: Rash Neurological: Normal. absent: Headache, Dizziness Endocrine: Normal Hemo/Lymphatic: Normal Psychiatric: Normal <Laila Avila PA-C - Last Filed: 12/16/17 02:29> Physical Exam Vital Signs Reviewed: Yes Temperature: Afebrile Blood Pressure: Normal Pulse: Tachycardic Respiratory Rate: Normal Appearance: Positive for: Well-Appearing, Non-Toxic, Comfortable Pain Distress: None Mental Status: Positive for: Alert and Oriented X 3 - Systems Exam Head: Present: Atraumatic, Normocephalic Pupils: Present: PERRL Extroacular Muscles: Present: EOMI Conjunctiva: Present: Normal Mouth: Present: Moist Mucous Membranes Neck: Present: Normal Range of Motion Respiratory/Chest: Present: Clear to Auscultation, Good Air Exchange. No: Respiratory Distress, Accessory Muscle Use Cardiovascular: Present: Regular Rate and Rhythm, Normal S1, S2. No: Murmurs Abdomen: No: Tenderness, Distention, Peritoneal Signs Back: Present: Normal Inspection Upper Extremity: Present: Normal Inspection. No: Cyanosis, Edema Lower Extremity: Present: Normal Inspection. No: Edema Neurological: Present: GCS=15, CN II-XII Intact, Speech Normal Skin: Present: Warm, Dry, Normal Color. No: Rashes Psychiatric: Present: Alert, Oriented x 3, Normal Insight, Normal Concentration <Laila Avila PA-C - Last Filed: 12/16/17 02:29> Vital Signs Temp Pulse Resp BP Pulse Ox 12/16/17 00:50 98.3 F 107 H 19 125/73 95 12/15/17 19:35 98.4 F 106 H 18 118/91 H 95 Medical Decision Making <Twin Singh - Last Filed: 12/15/17 23:21> <Laila Avila PA-C - Last Filed: 12/16/17 02:29> ED Course and Treatment: 12/15/17 21:40 Impression: 47 year old female presents to the Emergency department complaining of recurrent chest pain. Plan: -- EKG -- Cardiac ISO -- Chest X-ray -- Lung perf & vent scan -- POC urine -- Labs -- Reassess and disposition Progress Notes: EKG : ST at 109 bpm, no acute ST changes. 23:00 Labs not obtained immediately as the patient is a difficult blood draw and IV access is unable to be established by any OILER BANDER. Patient does have visible veins in both ACs, but she is refusing IV or blood draw from b/l AC by any RN. Lab called, they will send one of their techs to draw lab on the patient. Patient resting comfortably in no acute distress. 12/16/17 00:00 microarray operations vice president contacted and agrees to attempt to place a central line. Labs reviewed : hgb 10, trop (-). 01:30 Uhcg (-). Patient still out IV access. microarray operations vice president contacted, who will attempt EJ, if not successful will attempt to place a central line. On re- evaluation, patient is laying in bed comfortably in no acute distress, breathing is easy and unlabored. 02:00 retread technician arrived to the ER, who states that the VQ scan can not be performed as the radio-isotopes have and the patient will need to wait until the AM to have the VQ scan done. microarray operations vice president attempting central line placement now. 02:15 Case d/w Dr. Taylor and medical assistant instructor, who agree with plan for observation to have VQ scan done in the AM. (Austin MORA,Laila Scott) - Lab Interpretations Lab Results: 12/15/17 23:55 12/15/17 23:55 Lab Results 12/16/17 00:00: Beta HCG, Quant 8.28 H 12/15/17 23:55: Sodium 138, Potassium 4.1, Chloride 105, Carbon Dioxide 25, Anion Gap 12, BUN 14, Creatinine 0.4 L, Est GFR ( Amer) > 60, Est GFR ( Non-Af Amer) > 60, Random Glucose 117 H, Calcium 9.1, Magnesium 1.9, Total Bilirubin 0.3, AST 17, ALT 23, Alkaline Phosphatase 60, Lactate Dehydrogenase 415, Total Creatine Kinase < 20 L, Troponin I < 0.01, Total Protein 6.7, Albumin 3.8, Globulin 2.9, Albumin/Globulin Ratio 1.3 12/15/17 23:55: PT 11.5, INR 1.01, APTT 21.3 L 12/15/17 23:55: WBC 9.2 D, RBC 4.71, Hgb 10.0 L, Hct 33.9 L, MCV 72.0 L, MCH 21.2 L, MCHC 29.5 L, RDW 21.9 H, Plt Count 700 H, MPV 9.3, Gran % 56.2, Lymph % (Auto) 26.7, [place] % (Auto) 11.5 H, Eos % (Auto) 3.6, Baso % (Auto) 2.0, Gran # 5.19, Lymph # (Auto) 2.5, [place] # (Auto) 1.1 H, Eos # (Auto) 0.3, Baso # (Auto) 0.18 - RAD Interpretation Radiology Orders: 12/15/17 20:27 CHEST TWO VIEWS (PA/LAT) [RAD] Stat 12/15/17 20:33 LUNG PERF & VENT SCAN [NM] Stat - PA / LEATHER WHITENER / Resident Statement / has reviewed & agrees with the documentation as recorded. / has examined the patient and agrees with the treatment plan. <Twin Singh - Last Filed: 12/15/17 23:21> - PA / LEATHER WHITENER / Resident Statement / has reviewed & agrees with the documentation as recorded. - Scribe Statement The provider has reviewed the documentation as recorded by the Scribe <Laila Avila PA-C - Last Filed: 12/16/17 02:29> - Scribe Statement Arminda Brown All medical record entries made by the Scribe were at my direction and personally dictated by me. I have reviewed the chart and agree that the record accurately reflects my personal performance of the history, physical exam, medical decision making, and the department course for this patient. I have also personally directed, reviewed, and agree with the discharge instructions and disposition. (Laila Avila PA-C) Disposition/Present on Arrival <Twin Singh - Last Filed: 12/15/17 23:21> - Present on Arrival Any Indicators Present on Arrival: No History of DVT/PE: No History of Uncontrolled Diabetes: No Urinary Catheter: No History of Decub. Ulcer: No History Surgical Site Infection Following: None - Disposition Have Diagnosis and Disposition been Completed?: Yes Disposition Time: 02:15 Patient Plan: Observation (remote tele) <Laila Avila PA-C - Last Filed: 12/16/17 02:29> - Disposition Diagnosis: Chest pain Disposition: HOSPITALIZED Patient Problems: Current Active Problems Problem Status Onset Chest pain Acute 10/22/13 Condition: FAIR Discharge Instructions (ExitCare): Chest Pain (ED) Referrals: PCP,NO [Primary Care Provider] - Follow up with primary Forms: [employer] (Kiswahili)
[2017-12-16 00:22] LABS: ALB/GLOB RATIO 1.3 (1.1-1.8); ALBUMIN 3.8 g/dL (3.0-4.8); ALT/SGPT 23 U/L (7-56); AST/SGOT 17 U/L (14-36); BLOOD UREA NITROGEN 14 mg/dL (7-21); CALCIUM 9.1 mg/dL (8.4-10.5); GFR NON-AFRICAN AMERICAN > 60
[2017-12-16 00:33] LABS: TROPONIN I < 0.01 ng/mL
[2017-12-16 00:41] LABS: BASO # 0.18 K/mm3 (0.0-2.0); EOS # 0.3 (0.0-0.7); EOS % 3.6 % (1.5-5.0); GRAN # 5.19 (1.4-6.5); GRAN % 56.2 % (50.0-68.0); LYMPH # 2.5 (1.2-3.4); LYMPH % 26.7 % (22.0-35.0); MEAN CORPUSCULAR HEMOGLOBIN 21.2 pg (25.0-35.0); MEAN CORPUSCULAR HGB CONC 29.5 g/dl (31.0-37.0); MEAN PLATELET VOLUME 9.3 fl (7.0-11.0); MONO # 1.1 (0.1-0.6); MONO % 11.5 % (1.0-6.0); RBC 4.71 10^6/uL (3.5-6.1); RED CELL DISTRIBUTION WIDTH 21.9 % (11.5-14.5); WHITE BLOOD COUNT 9.2 10^3/ul (4.5-11.0)
[2017-12-16 01:15] LABS: INR 1.01; PARTIAL THROMBOPLASTIN TIME 21.3 Seconds (25.1-36.5); PROTHROMBIN TIME 11.5 SECONDS (9.4-12.5)
[2017-12-16] MEDS ORDERED: Morphine 2 mg/ml ISec SC STA (03:14)
--- NOTE | 2017-12-16 03:34 | CP.PCM.HP ---
<Mary Fernandez - Last Filed: 12/16/17 05:15> History of Present Illness - History of Present Illness History of Present Illness: Mary Fernandez, PGY-1 H&P for Hospitalist Service This is a 47 year old female with PMH of asthma and history of 12 previous pulmonary embolisms on lovenox 120mg BID presenting to the ED for CP and SOB that began on Monday at 4pm. Patient states she was sitting down when she suddenly felt sharp, nonradiating, constant chest pain rated at 9/10 that is worsened with breathing. Patient tried tylenol with no relief. She was seen at [facility] last week for similar complaints at V/Q scan at that time showed mild to moderate mismatch in the left lower lobe suspicious for P.E. Patient currently admits to C.P. that is associated with SOB with deep breaths and nausea. She states she vomited x4 non bloody nonbilious prior to arrival of ED. She denies fever, chills, headaches, abdominal pain, back pain, urinary complaints, numbness, tingling, swelling, trauma, recent travel, recent sickness and recent lifestyle change. 12 point ROS noted here otherwise unremarkable. She admits to being compliant with lovenox. In the ED, EKG showed sinus tachycardia at 109bpm with no ST changes. Troponin is <0.01. Patient had difficulty getting peripheral access. PICC line ordered. hvac service technician stated that V/Q scan can not be performed as the radio- isotopes have , will need to wait until morning to have scan done. Patient will be admitted to observation. PMD: denies PMH: as above SH: denies smoking, drinking and drugs SX: removal of appendix/gallbladder/spleen and tubal ligation FH: dad from [place] in 40s, mom has afib, HTN and seizures Meds:lovenox All: NSAIDs, zofran, contrast Present on Admission - Present on Admission Any Indicators Present on Admission: Yes History of DVT/PE: Yes Past Patient History - Infectious Disease Hx of Infectious Diseases: None - Tetanus Immunizations Tetanus Immunization: Up to Date - Past Medical History & Family History Past Medical History?: Yes - Past Social History Smoking Status: Never Smoked - CARDIAC Hx Cardiac Disorders: No Hx Atrial Fibrillation: No Hx Cardia Arrhythmia: No Hx Congestive Heart Failure: No - PULMONARY Hx Respiratory Disorders: Yes Hx Asthma: Yes Hx Bronchitis: No Hx Chronic Obstructive Pulmonary Disease (COPD): No Hx Emphysema: No Hx Pneumonia: No Hx Pulmonary Embolism: Yes (x11) Hx Sleep Apnea: No - NEUROLOGICAL Hx Neurological Disorder: No - HEENT Hx HEENT Problems: No - RENAL Hx Chronic Kidney Disease: Yes Hx Kidney Stones: Yes - ENDOCRINE/METABOLIC Hx Endocrine Disorders: No - HEMATOLOGICAL/ONCOLOGICAL Hx Blood Disorders: No - INTEGUMENTARY Hx Dermatological Problems: No - MUSCULOSKELETAL/RHEUMATOLOGICAL Hx Musculoskeletal Disorders: No Hx Falls: No - GASTROINTESTINAL Hx Gastrointestinal Disorders: No - GENITOURINARY/GYNECOLOGICAL Hx Genitourinary Disorders: No - PSYCHIATRIC Hx Psychophysiologic Disorder: No Hx Substance Use: No - SURGICAL HISTORY Hx Appendectomy: Yes Hx Carotid Endarterectomy: No Hx Cholecystectomy: Yes Hx Coronary Artery Bypass Graft: No Hx Coronary Stent: No Hx Splenectomy: Yes - ANESTHESIA Hx Anesthesia: Yes Hx Anesthesia Reactions: No Hx Malignant Hyperthermia: No Meds Allergies/Adverse Reactions: Allergies Allergy/AdvReac Type Severity Reaction Status Date / Time iodixanol Allergy Severe SHORTNESS Verified 11/10/17 21:08 OF BREATH acetaminophen [From Percocet] Allergy RASH Verified 11/10/17 21:08 ibuprofen [From Motrin] Allergy SHORTNESS Verified 11/10/17 21:08 OF BREATH Iodine and Iodide Containing Allergy SHORTNESS Verified 11/10/17 21:08 Produc OF BREATH ketorolac Allergy ITCHING Verified 11/10/17 21:08 NSAIDS (Non-Steroidal Allergy ITCHING Verified 11/10/17 21:08 Anti-Inflamma ondansetron Allergy ITCHING Verified 11/10/17 21:08 oxycodone [From Percocet] Allergy RASH Verified 11/10/17 21:08 Physical Exam - Constitutional Appears: No Acute Distress - Head Exam Head Exam: ATRAUMATIC, NORMAL INSPECTION - Eye Exam Eye Exam: EOMI Pupil Exam: PERRL - ENT Exam ENT Exam: Mucous Membranes Moist - Respiratory Exam Respiratory Exam: Clear to Auscultation Bilateral. absent: Respiratory Distress - Cardiovascular Exam Cardiovascular Exam: Tachycardia, REGULAR RHYTHM, +S1, +S2 - GI/Abdominal Exam GI & Abdominal Exam: Normal Bowel Sounds. absent: Firm, Guarding - Extremities Exam Extremities exam: Positive for: normal inspection, pedal pulses present. Negative for: calf tenderness, joint swelling - Neurological Exam Neurological exam: Alert, Oriented x3 - Skin Skin Exam: Normal Color, Warm Results - Vital Signs Recent Vital Signs: Last Vital Signs Temp 98.3 F 12/16/17 00:50 Pulse 107 H 12/16/17 00:50 Resp 19 12/16/17 00:50 BP 125/73 12/16/17 00:50 Pulse Ox 95 12/16/17 00:50 - Labs Result Diagrams: 12/15/17 23:55 12/15/17 23:55 Assessment & Plan - Assessment and Plan (Free Text) Assessment: This is a 47 year old female with PMH of asthma and history of 12 previous pulmonary embolisms on lovenox 120mg BID presenting to the hospital for management of CP and SOB that began on Monday at 4pm. Patient will be admitted for observation and V/Q scan pending in the AM. Plan: Chest pain, SOB -concern for PE due to history of multiple P.E.'s -patient states she has been compliant with lovenox for the last 1.5 years -Went to [facility] last week for similar complaints and V/Q scan showed mild to moderate mismatch in the left lower lobe suspicious for P.E. -V/Q scan pending in the AM. hvac service technician stated radio-isotopes have -tramodol prn for pain -troponin x2 trending -ABG pending -PICC line pending, difficult peripheral access -continue lovenox 120mg BID -Pulmonology on consult, recommendations appreciated Microcytic Anemia -Hg of 10, chronic stable. Low MCV -will monitor Asthma -per patient, symptoms are controlled -duonebs as needed PPX with protonix and lovenox Patient seen and case discussed with attending, Dr. Rene Fernandez, PGY-1 <Rene Taylor N - Last Filed: 12/16/17 06:55> Results - Vital Signs Recent Vital Signs: Last Vital Signs Temp 98.0 F 12/16/17 04:44 Pulse 87 12/16/17 04:44 Resp 20 12/16/17 04:44 BP 124/73 12/16/17 04:44 Pulse Ox 95 12/16/17 04:17 - Labs Result Diagrams: 12/15/17 23:55 12/15/17 23:55
--- NOTE | 2017-12-16 05:18 | CP.PCM.PN ---
Subjective - Date & Time of Evaluation Date of Evaluation: 12/16/17 Time of Evaluation: 05:18 - Subjective Subjective: # 24 angiocath was inserted in right foot. Objective - Vital Signs/Intake and Output Vital Signs (last 24 hours): Temp Pulse Resp BP Pulse Ox 98.2 F 97 H 18 125/73 95 12/16/17 04:17 12/16/17 04:17 12/16/17 04:17 12/16/17 00:50 12/16/17 04:17 - Medications Medications: Current Medications Albuterol/Ipratropium (Duoneb 3 Mg/0.5 Mg (3 Ml) Ud) 3 ml IH Q6 BRIGITTE Enoxaparin Sodium (Lovenox) 120 mg SC Q12 BRIGITTE PRN Reason: Protocol Pantoprazole Sodium (Protonix Ec Tab) 20 mg PO 0600,1600 BRIGITTE Tramadol HCl (Ultram) 50 mg PO Q6 PRN PRN Reason: Pain, moderate (4-7) - Labs Labs: PT 11.5 SECONDS (9.4-12.5) 12/15/17 23:55 INR 1.01 12/15/17 23:55 APTT 21.3 Seconds (25.1-36.5) L 12/15/17 23:55
[2017-12-16] MEDS ORDERED: Pantoprazole 20 mg EC Tab PO SCH (06:00)
[2017-12-16] MEDS: Albuterol-Ipratrop 3 mg / 0.5 (3 ml) UD IH SCH ×3 (07:43→19:34)
--- NOTE | 2017-12-16 09:40 | CARD ---
APPROVED REPORT Date of service: 12/15/2017 EKG Measurement Heart [id number] <Conclusion> Sinus tachycardia Voltage criteria for left ventricular hypertrophy ST abnormality, possible digitalis effect Abnormal ECG
--- NOTE | 2017-12-16 10:35 | RAD ---
Date of service: 12/16/2017 HISTORY: Chest Pain COMPARISON: No prior. TECHNIQUE: Chest PA and lateral FINDINGS: LUNGS: No active pulmonary disease. PLEURA: No significant pleural effusion identified. No pneumothorax apparent. CARDIOVASCULAR: Normal. OSSEOUS STRUCTURES: No significant abnormalities. VISUALIZED UPPER ABDOMEN: Normal. OTHER FINDINGS: None. IMPRESSION: No active disease.
--- NOTE | 2017-12-16 10:41 | NM ---
Date of service: 12/16/2017 COMPARISON: Chest x-ray same day TECHNIQUE: 33.0 mCi technetium 99-m DTPA aerosol. 30.3 mCI technetium 99-m MAA administered intravenously. FINDINGS: VENTILATION COMPONENT: Normal. PERFUSION COMPONENT: Normal. IMPRESSION: Lowprobability ventilation perfusion scan for pulmonary embolism.
[2017-12-16] MEDS: Enoxaparin 120 mg Syringe SC SCH ×2 (11:03→21:52)
[2017-12-16 11:41] LABS: BASO # 0.14 K/mm3 (0.0-2.0); BASO % 2.2 % (0.0-3.0); EOS # 0.3 (0.0-0.7); GRAN # 3.6 (1.4-6.5); GRAN % 57.7 % (50.0-68.0); HEMOGLOBIN 10.2 g/dL (12.0-16.0); LYMPH # 1.5 (1.2-3.4); LYMPH % 24.5 % (22.0-35.0); MEAN CELL VOLUME 72.5 fl (80.0-105.0); MEAN CORPUSCULAR HEMOGLOBIN 21.4 pg (25.0-35.0); MEAN CORPUSCULAR HGB CONC 29.6 g/dl (31.0-37.0); MONO # 0.7 (0.1-0.6); MONO % 10.6 % (1.0-6.0); RBC 4.76 10^6/uL (3.5-6.1); RED CELL DISTRIBUTION WIDTH 21.8 % (11.5-14.5); WHITE BLOOD COUNT 6.2 10^3/ul (4.5-11.0)
[2017-12-16 12:01] LABS: TOTAL IRON BINDING CAPACITY 431 ug/dL (265-497)
[2017-12-16 12:02] LABS: % IRON SATURATION 7 % (20-55); ALB/GLOB RATIO 1.4 (1.1-1.8); ALBUMIN 3.7 g/dL (3.0-4.8); ALT/SGPT 29 U/L (7-56); AST/SGOT 19 U/L (14-36); BLOOD UREA NITROGEN 11 mg/dL (7-21); CALCIUM 8.7 mg/dL (8.4-10.5); GFR NON-AFRICAN AMERICAN > 60; IRON 31 ug/dL (45-180)
[2017-12-16 12:04] LABS: TROPONIN I < 0.01 ng/mL
--- NOTE | 2017-12-16 17:10 | CARD ---
APPROVED REPORT Date of service: 12/16/2017 EKG Measurement Heart [id number] <Conclusion> Sinus rhythm with occasional premature ventricular complexes Voltage criteria for left ventricular hypertrophy Cannot rule out Septal infarct, age undetermined Abnormal ECG
[2017-12-17] MEDS: Albuterol-Ipratrop 3 mg / 0.5 (3 ml) UD IH SCH ×4 (01:22→20:10)
--- NOTE | 2017-12-17 06:36 | CP.PCM.PN ---
<Fang Chaidez - Last Filed: 12/17/17 20:51> Subjective - Date & Time of Evaluation Date of Evaluation: 12/17/17 Time of Evaluation: 09:30 - Subjective Subjective: PGY-1 Fang Chaidez D.O. Medicine progress note for Dr. Sanchez's service: Patient was seen and examined this morning. She had a midline inserted yesterday. Patient is lethargic. She is snoring while sleeping but able to be aroused. She complains of chest pain that has been present for 3 days. She denies SOB. Also, patient's elevated HCG was discussed. Patient reports having a period 12/04. She denies being sexually active for the past 2.5 years. Patient is re-examined in the afternoon. She is watching TV and laughing. When asked how she is, she complains of crushing chest pain and requests pain medications. She refused to try Tylenol and claims she is allergic to NSAIDs and Tramadol. Objective - Vital Signs/Intake and Output Vital Signs (last 24 hours): Temp Pulse Resp BP Pulse Ox 98.6 F 81 20 133/69 95 12/16/17 21:00 12/17/17 02:00 12/17/17 00:00 12/17/17 00:00 12/17/17 00:00 Intake and Output: 12/16/17 12/17/17 18:59 06:59 Intake Total 180 Output Total 0 Balance 180 - Medications Medications: Current Medications Albuterol/Ipratropium (Duoneb 3 Mg/0.5 Mg (3 Ml) Ud) 3 ml IH Q6 [facility] Last Admin: 12/17/17 01:22 Dose: Not Given Enoxaparin Sodium (Lovenox) 120 mg SC Q12 [facility] PRN Reason: Protocol Last Admin: 12/16/17 21:52 Dose: 120 mg Tramadol HCl (Ultram) 50 mg PO Q6 PRN PRN Reason: Pain, moderate (4-7) - Labs Labs: 12/16/17 11:30 12/16/17 11:30 PT 11.5 SECONDS (9.4-12.5) 12/15/17 23:55 INR 1.01 12/15/17 23:55 APTT 21.3 Seconds (25.1-36.5) L 12/15/17 23:55 - Constitutional Appears: Non-toxic, No Acute Distress - Head Exam Head Exam: ATRAUMATIC, NORMAL INSPECTION - Eye Exam Eye Exam: EOMI, Normal appearance, PERRL - ENT Exam ENT Exam: Mucous Membranes Moist, Normal Exam - Neck Exam Neck Exam: Normal Inspection - Respiratory Exam Respiratory Exam: Clear to Ausculation Bilateral, NORMAL BREATHING PATTERN - Cardiovascular Exam Cardiovascular Exam: REGULAR RHYTHM, +S1, +S2 - GI/Abdominal Exam GI & Abdominal Exam: Soft, Normal Bowel Sounds. absent: Tenderness Additional comments: obese - Rectal Exam Rectal Exam: Deferred - Extremities Exam Extremities Exam: Normal Capillary Refill, Normal Inspection. absent: Tenderness - Back Exam Back Exam: NORMAL INSPECTION - Neurological Exam Neurological Exam: Alert, Awake, CN II-XII Intact, Oriented x3. 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 V/Q scan shows low probability of PE. Plan: Chest pain, SOB- went to [facility] last week for similar complaints and V/Q scan showed mild to moderate mismatch in the left lower lobe suspicious for P.E. -patient states she has been compliant with lovenox for the last 1.5 years -V/Q scan: low probability of PE -troponin x2 -ABG: pH 7.41, pO2 72, pCO2 39 -continue lovenox 120mg BID -Pulmonology consulted Lethargy, improving-suspect HEATH -UDS positive for opiates- morphine given in ED Vfib- observed on tele, patient asymptomatic -Cardiology consulted Elevated beta-HCG -repeat in 3 days () Thrombocytosis, improving-suspect reactive -will monitor CBC Microcytic Anemia -Hg of 10, chronic stable. Low MCV -will monitor CBC Asthma- per patient, symptoms are controlled -duonebs q6 as needed IVF: not indicated Diet: regular GI ppx: not indicated VTE ppx: Lovenox 120 mg SC q12hrs Code status: full code Case discussed with attending, Dr. Sanchez <Michelle Sanchez R - Last Filed: 12/18/17 13:05> Objective - Vital Signs/Intake and Output Vital Signs (last 24 hours): Temp Pulse Resp BP Pulse Ox 97.9 F 89 18 121/81 98 12/18/17 08:17 12/18/17 08:17 12/18/17 08:17 12/18/17 08:17 12/18/17 08:17 - Medications Medications: Current Medications Albuterol/Ipratropium (Duoneb 3 Mg/0.5 Mg (3 Ml) Ud) 3 ml IH Q6 [facility] Last Admin: 12/18/17 08:12 Dose: Not Given Enoxaparin Sodium (Lovenox) 120 mg SC Q12 [facility] PRN Reason: Protocol Last Admin: 12/17/17 21:49 Dose: 120 mg - Labs Labs: PT 11.5 SECONDS (9.4-12.5) 12/15/17 23:55 INR 1.01 12/15/17 23:55 APTT 21.3 Seconds (25.1-36.5) L 12/15/17 23:55 Attending/Attestation - Attestation I have personally seen and examined this patient.: Yes I have fully participated in the care of the patient.: Yes I have reviewed all pertinent clinical information, including history, physical exam and plan: Yes Notes (Text): Patient seen and examined by me at 9:50AM with resident 12/17/17. Case including HPI, physical exam, and assessment and plan discussed with resident. Agree with above with following additions/corrections. Patient is a 47 year old female with past medical history significant for asthma and pulmonary emboli that presented to the emergency room with chest pain and shortness of breath. Patient sleepy. When wakes up, patient is complains of chest pain. However patient, appears to be very comfortable and goes right back to sleep. Patient has been refusing blood work and testing. Importance of compliance discussed at length with patient. Patient states she was recently at [facility] for similar symptoms and has a copy of her V/Q scan that showed mild to moderated mismatch in left lower lobe suspicious for PE. Patient states she has been taking lovenox for 1.5 years and gets it from a clinic in [place]. She is denying any current shortness of breath. Chest pain is across her chest and does not radiate. Pain is pressure like in nature and worsened with deep breaths. No palpitations. No nausea, vomiting, or abdominal pain. No headaches or dizziness. No fevers or chills. No dysuria. No diarrhea or constipation. Physical exam: General: Sleepy but arousable, lying in bed in no acute distress HEENT: Normocephalic atraumatic. Pupils equal reactive. Extraocular muscles intact. No scleral icterus. No pharyngeal erythema or exudate appreciated. Neck is supple. Cardiovascular: Normal rhythm. Normal S1, S2. No murmurs, rubs, or gallops appreciated Pulmonary: Normal respiratory effort. No rhonchi, rales or wheezing appreciated. Gastrointestinal: Soft, nondistended. Nontender. Obese abdomen. Positive bowel sounds all 4 quadrants, no guarding. Unable to appreciate any organomegaly, may inaccurate secondary to large body habitus. Musculoskeletal: Normal range of motion all extremities. No edema appreciated. No calf tenderness. No CVA tenderness. Central nervous system: AAOx3, CN 2-12 grossly intact. 5/5 muscle strength all extremities. Dermatologic: Skin warm and dry Assessment and plan: Patient is a 47 year old female with past medical history significant for asthma and pulmonary emboli that presented to the emergency room with chest pain and shortness of breath. 1. Chest pain. Shortness of breath. Patient is resting comfortably. Shortness of breath appears to be resolved at rest. V/Q scan here shows low probability for PE. Continue Lovenox. Arrhythmia on tele monitor. Cardiology and pulmonary consulted, follow up recommendations. Troponin within normal limits. Pending ABG as patient has been refusing. 2. Lethargy. Patient likely with sleep apnea. States she was unable to sleep well overnight. Pulmonary consulted, follow up recommendations. ABG pending. 3. Thrombocytosis. Unclear etiology. Patient refusing blood work. Unable to follow up repeat labs. Importance of compliance discussed at length with patient. 4. Anemia. Chronic. No signs of acute bleeding. Continue to monitor. 5. Elevated Beta-Hcg. Per patient, she has not been sexually active for past 2.5 years. 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 Will repeat levels in 3 days. States last menstrual period was 12/04/17. She states last menstrual period was 12/04/17 6. Asthma. No acute exacerbation. Continue nebulizer treatments as needed. Case discussed in detail with patient regarding current diagnosis and treatment plan.
[2017-12-17 09:49] LABS: ARTERIAL BLOOD GAS HCO3 24.7 mmol/L (21-28); ARTERIAL BLOOD GAS O2 SAT 97.3 % (95-98); ARTERIAL BLOOD GAS PCO2 39 mm/Hg (35-45); ARTERIAL BLOOD GAS PH 7.41 (7.35-7.45); ARTERIAL BLOOD GAS TCO2 25.9 mmol.L (22-28)
[2017-12-17] MEDS: Enoxaparin 120 mg Syringe SC SCH ×2 (10:43→21:49)
[2017-12-17 12:34] LABS: BARBITURATES, UR NEGATIVE (NEGATIVE); BENZODIAZEPINES, UR NEGATIVE (NEGATIVE); OPIATES, UR POSITIVE (NEGATIVE); PHENCYCLIDINE, UR NEGATIVE (NEGATIVE)
[2017-12-18 00:27] VITALS: RESP 18
[2017-12-18] MEDS: Albuterol-Ipratrop 3 mg / 0.5 (3 ml) UD IH SCH ×3 (02:03→13:20)
--- NOTE | 2017-12-18 07:57 | CP.PCM.CON ---
History of Present Illness - History of Present Illness History of Present Illness: Easily awaken, no distress, chest discomfort but goes back to sleep Reason for consultation: Cardiac evaluation of chest pain non radiating with deep breathing. Also complained of nausea and vomiting. Brief history of present illness: A 47 year old female morbidly obese who came in to the ER due to complaints of chest pain, non-radiating worsened when taking deep breaths. Denies chest pain now. History of pulmonary embolism on Lovenox. She was seen at [facility] last week for same symptoms. She also complained of nausea and vomiting. History of asthma and pulmonary embolism. EKG -sinus tachycardia. Troponins normal. Urine positive for opiates. Seen and examined by me and Dr. Montes Review of Systems - Review of Systems All systems: reviewed and no additional remarkable complaints except Review of Systems: per HPI Past Patient History - Infectious Disease Hx of Infectious Diseases: None - Tetanus Immunizations Tetanus Immunization: Up to Date - Past Medical History & Family History Past Medical History?: Yes - Past Social History Smoking Status: Never Smoked - CARDIAC Hx Cardiac Disorders: No Hx Atrial Fibrillation: No Hx Cardia Arrhythmia: No Hx Congestive Heart Failure: No - PULMONARY Hx Respiratory Disorders: Yes Hx Asthma: Yes Hx Bronchitis: No Hx Chronic Obstructive Pulmonary Disease (COPD): No Hx Emphysema: No Hx Pneumonia: No Hx Pulmonary Embolism: Yes (x11) Hx Sleep Apnea: No - NEUROLOGICAL Hx Neurological Disorder: No - HEENT Hx HEENT Problems: No - RENAL Hx Chronic Kidney Disease: Yes Hx Kidney Stones: Yes - ENDOCRINE/METABOLIC Hx Endocrine Disorders: No - HEMATOLOGICAL/ONCOLOGICAL Hx Blood Disorders: No - INTEGUMENTARY Hx Dermatological Problems: No - MUSCULOSKELETAL/RHEUMATOLOGICAL Hx Musculoskeletal Disorders: No Hx Falls: No - GASTROINTESTINAL Hx Gastrointestinal Disorders: No - GENITOURINARY/GYNECOLOGICAL Hx Genitourinary Disorders: No - PSYCHIATRIC Hx Psychophysiologic Disorder: No Hx Substance Use: No - SURGICAL HISTORY Hx Appendectomy: Yes Hx Carotid Endarterectomy: No Hx Cholecystectomy: Yes Hx Coronary Artery Bypass Graft: No Hx Coronary Stent: No Hx Splenectomy: Yes - ANESTHESIA Hx Anesthesia: Yes Hx Anesthesia Reactions: No Hx Malignant Hyperthermia: No Meds Allergies/Adverse Reactions: Allergies Allergy/AdvReac Type Severity Reaction Status Date / Time iodixanol Allergy Severe SHORTNESS Verified 11/10/17 21:08 OF BREATH acetaminophen [From Percocet] Allergy RASH Verified 11/10/17 21:08 ibuprofen [From Motrin] Allergy SHORTNESS Verified 11/10/17 21:08 OF BREATH Iodine and Iodide Containing Allergy SHORTNESS Verified 11/10/17 21:08 Produc OF BREATH ketorolac Allergy ITCHING Verified 11/10/17 21:08 NSAIDS (Non-Steroidal Allergy ITCHING Verified 11/10/17 21:08 Anti-Inflamma ondansetron Allergy ITCHING Verified 11/10/17 21:08 oxycodone [From Percocet] Allergy RASH Verified 11/10/17 21:08 - Medications Medications: Current Medications Albuterol/Ipratropium (Duoneb 3 Mg/0.5 Mg (3 Ml) Ud) 3 ml IH Q6 [facility] Last Admin: 12/18/17 02:03 Dose: Not Given Enoxaparin Sodium (Lovenox) 120 mg SC Q12 [facility] PRN Reason: Protocol Last Admin: 12/17/17 21:49 Dose: 120 mg Physical Exam - Constitutional Appears: No Acute Distress - Head Exam Head Exam: NORMOCEPHALIC - Eye Exam Eye Exam: Normal appearance - ENT Exam ENT Exam: Mucous Membranes Moist - Respiratory Exam Respiratory Exam: Decreased Breath Sounds, NORMAL BREATHING PATTERN - Cardiovascular Exam Cardiovascular Exam: REGULAR RHYTHM, +S1, +S2 Additional comments: mid chest discomfort - GI/Abdominal Exam GI & Abdominal Exam: Normal Bowel Sounds, Soft - Neurological Exam Neurological exam: Alert, Oriented x3 - Skin Skin Exam: Dry, Warm Results - Vital Signs Recent Vital Signs: Last Vital Signs Temp 100.1 F H 12/18/17 00:00 Pulse 94 H 12/18/17 02:00 Resp 18 12/18/17 00:00 BP 112/71 12/18/17 00:00 Pulse Ox 96 12/18/17 00:00 - Labs Result Diagrams: 12/16/17 11:30 12/16/17 11:30 Labs: Laboratory Results - last 24 hr 12/17/17 12/17/17 12/17/17 09:46 11:30 18:17 pCO2 39 pO2 72.0 L HCO3 24.7 ABG pH 7.41 ABG Total CO2 25.9 ABG O2 Saturation 97.3 ABG Base Excess 0.1 ABG Potassium 3.4 L Sodium 141.0 Chloride 111.0 H Glucose 94 Lactate 0.7 FiO2 21.0 Beta HCG, Quant 8.94 H Arterial Blood Potassium 3.4 L Urine Opiates Screen Positive H Urine Methadone Screen Negative Ur Barbiturates Screen Negative Ur Phencyclidine Scrn Negative Ur Amphetamines Screen Negative U Benzodiazepines Scrn Negative U Oth Cocaine Metabols Negative U Cannabinoids Screen Negative Assessment & Plan - Assessment and Plan (Free Text) Assessment: A 47 year old female morbidly obese who came in to the ER due to complaints of chest pain, non-radiating worsened when taking deep breaths. Denies chest pain now. History of pulmonary embolism on Lovenox, Appendectomy,cholecystectomy, tubal ligation. She was seen at [facility] last week for same symptoms. She also complained of nausea and vomiting. History of asthma and pulmonary embolism. EKG-sinus tachycardia with VPC's.Troponins normal. Urine positive for opiates. Chest X ray normal, VQ scan low probability for pulmonary embolism. Atypical chest pain. ECHO to evaluate LV function. Plan: Echo to evaluate LV function Troponins normal Atypical chest pain Blood pressure controlled Continue current treatment Continue current medications Will obtain TSH level, Hgb A1C, cholesterol level Consider GI work up Will follow up Further recommendations during hospital course Plan and treatment discussed with Dr. Montes Thank you for the opportunity of taking care of . Anali Venegasiago - Date & Time Date: 12/18/17 Time: 06:25
[2017-12-18 08:18] VITALS: BP 121/81; PULSE 89; TEMP 97.9; O2SAT 98
--- NOTE | 2017-12-18 14:56 | CP.PCM.DIS ---
<Fang Chaidez - Last Filed: 12/18/17 18:06> Provider - Provider Date of Admission: 12/17/17 07:37 Attending physician: Michelle Sanchez DO Primary care physician: MERARY PRIMARY CARE PROVIDER Consults: cardiology, pulmonology Time Spent in preparation of Discharge (in minutes): 45 Diagnosis - Discharge Diagnosis (1) Chest discomfort Status: Acute Priority: High (2) Elevated serum hCG Status: Acute Priority: Low (3) Lethargy Status: Resolved Priority: Low Hospital Course - Lab Results Lab Results: Most Recent Lab Values WBC 6.2 10^3/ul (4.5-11.0) D 12/16/17 11:30 RBC 4.76 10^6/uL (3.5-6.1) 12/16/17 11:30 Hgb 10.2 g/dL (12.0-16.0) L 12/16/17 11:30 Hct 34.5 % (36.0-48.0) L 12/16/17 11:30 MCV 72.5 fl (80.0-105.0) L 12/16/17 11:30 MCH 21.4 pg (25.0-35.0) L 12/16/17 11:30 MCHC 29.6 g/dl (31.0-37.0) L 12/16/17 11:30 RDW 21.8 % (11.5-14.5) H 12/16/17 11:30 Plt Count 730 10^3/uL (120.0-450.0) H* 12/16/17 11:30 MPV 9.0 fl (7.0-11.0) 12/16/17 11:30 Gran % 57.7 % (50.0-68.0) 12/16/17 11:30 Lymph % (Auto) 24.5 % (22.0-35.0) 12/16/17 11:30 [place] % (Auto) 10.6 % (1.0-6.0) H 12/16/17 11:30 Eos % (Auto) 5.0 % (1.5-5.0) 12/16/17 11:30 Baso % (Auto) 2.2 % (0.0-3.0) 12/16/17 11:30 Gran # 3.60 (1.4-6.5) 12/16/17 11:30 Lymph # (Auto) 1.5 (1.2-3.4) 12/16/17 11:30 [place] # (Auto) 0.7 (0.1-0.6) H 12/16/17 11:30 Eos # (Auto) 0.3 (0.0-0.7) 12/16/17 11:30 Baso # (Auto) 0.14 K/mm3 (0.0-2.0) 12/16/17 11:30 PT 11.5 SECONDS (9.4-12.5) 12/15/17 23:55 INR 1.01 12/15/17 23:55 APTT 21.3 Seconds (25.1-36.5) L 12/15/17 23:55 pCO2 39 mm/Hg (35-45) 12/17/17 09:46 pO2 72.0 mm/Hg (80-100) L 12/17/17 09:46 HCO3 24.7 mmol/L (21-28) 12/17/17 09:46 ABG pH 7.41 (7.35-7.45) 12/17/17 09:46 ABG Total CO2 25.9 mmol.L (22-28) 12/17/17 09:46 ABG O2 Saturation 97.3 % (95-98) 12/17/17 09:46 ABG Base Excess 0.1 mmol/L (-2.0-3.0) 12/17/17 09:46 ABG Potassium 3.4 mmol/L (3.6-5.2) L 12/17/17 09:46 Sodium 141.0 mmol/L (132-148) 12/17/17 09:46 Chloride 111.0 mmol/L (98-107) H 12/17/17 09:46 Glucose 94 mg/dl (65-105) 12/17/17 09:46 Lactate 0.7 mmol/L (0.7-2.1) 12/17/17 09:46 FiO2 21.0 % 12/17/17 09:46 Sodium 138 mmol/L (132-148) 12/16/17 11:30 Potassium 3.9 mmol/L (3.6-5.0) 12/16/17 11:30 Chloride 105 mmol/L (98-107) 12/16/17 11:30 Carbon Dioxide 27 mmol/L (21-33) 12/16/17 11:30 Anion Gap 10 (10-20) 12/16/17 11:30 BUN 11 mg/dL (7-21) 12/16/17 11:30 Creatinine 0.4 mg/dl (0.7-1.2) L 12/16/17 11:30 Est GFR ( Amer) > 60 12/16/17 11:30 Est GFR (Non-Af Amer) > 60 12/16/17 11:30 Random Glucose 109 mg/dL (70-110) 12/16/17 11:30 Calcium 8.7 mg/dL (8.4-10.5) 12/16/17 11:30 Magnesium 1.9 mg/dL (1.7-2.2) 12/15/17 23:55 Iron 31 ug/dL (45-180) L 12/16/17 11:30 TIBC 431 ug/dL (265-497) 12/16/17 11:30 % Saturation 7 % (20-55) L 12/16/17 11:30 Total Bilirubin 0.4 mg/dL (0.2-1.3) 12/16/17 11:30 AST 19 U/L (14-36) 12/16/17 11:30 ALT 29 U/L (7-56) 12/16/17 11:30 Alkaline Phosphatase 57 U/L (38-126) 12/16/17 11:30 Lactate Dehydrogenase 415 U/L (333-699) 12/15/17 23:55 Total Creatine Kinase < 20 U/L (35-230) L 12/15/17 23:55 Troponin I < 0.01 ng/mL 12/16/17 11:30 Total Protein 6.4 g/dL (5.8-8.3) 12/16/17 11:30 Albumin 3.7 g/dL (3.0-4.8) 12/16/17 11:30 Globulin 2.7 gm/dL 12/16/17 11:30 Albumin/Globulin Ratio 1.4 (1.1-1.8) 12/16/17 11:30 Beta HCG, Quant 8.94 mIU/mL (0-6.15) H 12/17/17 18:17 Arterial Blood Potassium 3.4 mmol/L (3.6-5.2) L 12/17/17 09:46 Urine Opiates Screen Positive (NEGATIVE) H 12/17/17 11:30 Urine Methadone Screen Negative (NEGATIVE) 12/17/17 11:30 Ur Barbiturates Screen Negative (NEGATIVE) 12/17/17 11:30 Ur Phencyclidine Scrn Negative (NEGATIVE) 12/17/17 11:30 Ur Amphetamines Screen Negative (NEGATIVE) 12/17/17 11:30 U Benzodiazepines Scrn Negative (NEGATIVE) 12/17/17 11:30 U Oth Cocaine Metabols Negative (NEGATIVE) 12/17/17 11:30 U Cannabinoids Screen Negative (NEGATIVE) 12/17/17 11:30 - Hospital Course Hospital Course: This is a 47 year old female with PMH of asthma and history of 12 previous pulmonary embolism on lovenox 120 mg BID presenting to the ED for CP and SOB that began on Monday at 4 pm. Patient states she was sitting down when she suddenly felt sharp, nonradiating, constant chest pain rated at 9/10 that is worsened with breathing. Patient tried Tylenol with no relief. She was seen at [facility] last week for similar complaints at V/Q scan at that time showed mild to moderate mismatch in the left lower lobe suspicious for P.E. Patient currently admits to C.P. that is associated with SOB with deep breaths and nausea. She states she vomited x4 non bloody nonbilious prior to arrival of ED. She denies fever, chills, headaches, abdominal pain, back pain, urinary complaints, numbness, tingling, swelling, trauma, recent travel, recent sickness and recent lifestyle change. 12 point ROS noted here otherwise unremarkable. She admits to being compliant with lovenox. In the ED, EKG showed sinus tachycardia at [address] changes. Troponin is <0.01. Patient had difficulty getting peripheral access. PICC line ordered. mobile service rv technician stated that V/Q scan cannot be performed as the radio- isotopes have , will need to wait until morning to have scan done. Patient will be admitted to observation. 12/15/17 V/Q scan: Low probability ventilation perfusion scan for pulmonary embolism. 12/16/17 CXR: No active disease. 12/16/17 EKG: Sinus rhythm with occasional premature ventricular complexes. Voltage criteria for left ventricular hypertrophy. Cannot rule out Septal infarct, age undetermined. 12/18/17 Cardio consulted. EKG did not reveal any acute abnormalities. Troponins negative. Cleared for discharge. Recommend echo as outpatient. Upon discharge, patient was not in acute distress. She did not have a PE. Vitals were stable. Patient has admitted to going to multiple hospitals for the same complaint. She continuously asked for pain medication but was always observed to be resting comfortably. She states she is allergic to acetaminophen , all NSAIDs, and tramadol. Patient claims she is getting Lovenox from the [facility]. She was encouraged to follow-up there this week. Discharge Exam - Head Exam Head Exam: NORMOCEPHALIC - Eye Exam Eye Exam: EOMI, Normal appearance, PERRL - ENT Exam ENT Exam: Mucous Membranes Moist, Normal Exam - Neck Exam Neck exam: Normal Inspection - Respiratory Exam Respiratory Exam: Clear to PA & Lateral, NORMAL BREATHING PATTERN, UNREMARKABLE - Cardiovascular Exam Cardiovascular Exam: REGULAR RHYTHM, +S1, +S2 - GI/Abdominal Exam GI & Abdominal Exam: Normal Bowel Sounds, Soft, Unremarkable Additional comments: obese - Rectal Exam Rectal Exam: Deferred - Back Exam Back exam: NORMAL INSPECTION - Neurological Exam Neurological exam: Alert, CN II-XII Intact, Normal Gait, Oriented x3 - Psychiatric Exam Psychiatric exam: Normal Affect, Normal Mood - Skin Skin Exam: Dry, Intact, Normal Color, Warm Discharge Plan - Follow Up Plan Condition: GOOD Disposition: HOME/ ROUTINE Patient education suggested?: Yes Instructions: Pulmonary Embolism (Blood Clot in the Lungs) (DC), Chest Pain (DC ) Additional Instructions: Please follow-up with the [facility] within 3-5 days of discharge. You may resume Lovenox as instructed by the clinic. You may take Tylenol for pain; this can be purchased [id number] without a prescription. If symptoms return, please present to the nearest emergency room. Referrals: PCP,NO [Primary Care Provider] - <Salvatore Reis - Last Filed: 12/19/17 14:15> Provider - Provider Date of Admission: 12/17/17 07:37 Attending physician: Michelle Sanchez DO Primary care physician: NO PRIMARY CARE PROVIDER Hospital Course - Lab Results Lab Results: Most Recent Lab Values WBC 6.2 10^3/ul (4.5-11.0) D 12/16/17 11:30 RBC 4.76 10^6/uL (3.5-6.1) 12/16/17 11:30 Hgb 10.2 g/dL (12.0-16.0) L 12/16/17 11:30 Hct 34.5 % (36.0-48.0) L 12/16/17 11:30 MCV 72.5 fl (80.0-105.0) L 12/16/17 11:30 MCH 21.4 pg (25.0-35.0) L 12/16/17 11:30 MCHC 29.6 g/dl (31.0-37.0) L 12/16/17 11:30 RDW 21.8 % (11.5-14.5) H 12/16/17 11:30 Plt Count 730 10^3/uL (120.0-450.0) H* 12/16/17 11:30 MPV 9.0 fl (7.0-11.0) 12/16/17 11:30 Gran % 57.7 % (50.0-68.0) 12/16/17 11:30 Lymph % (Auto) 24.5 % (22.0-35.0) 12/16/17 11:30 [place] % (Auto) 10.6 % (1.0-6.0) H 12/16/17 11:30 Eos % (Auto) 5.0 % (1.5-5.0) 12/16/17 11:30 Baso % (Auto) 2.2 % (0.0-3.0) 12/16/17 11:30 Gran # 3.60 (1.4-6.5) 12/16/17 11:30 Lymph # (Auto) 1.5 (1.2-3.4) 12/16/17 11:30 [place] # (Auto) 0.7 (0.1-0.6) H 12/16/17 11:30 Eos # (Auto) 0.3 (0.0-0.7) 12/16/17 11:30 Baso # (Auto) 0.14 K/mm3 (0.0-2.0) 12/16/17 11:30 PT 11.5 SECONDS (9.4-12.5) 12/15/17 23:55 INR 1.01 12/15/17 23:55 APTT 21.3 Seconds (25.1-36.5) L 12/15/17 23:55 pCO2 39 mm/Hg (35-45) 12/17/17 09:46 pO2 72.0 mm/Hg (80-100) L 12/17/17 09:46 HCO3 24.7 mmol/L (21-28) 12/17/17 09:46 ABG pH 7.41 (7.35-7.45) 12/17/17 09:46 ABG Total CO2 25.9 mmol.L (22-28) 12/17/17 09:46 ABG O2 Saturation 97.3 % (95-98) 12/17/17 09:46 ABG Base Excess 0.1 mmol/L (-2.0-3.0) 12/17/17 09:46 ABG Potassium 3.4 mmol/L (3.6-5.2) L 12/17/17 09:46 Sodium 141.0 mmol/L (132-148) 12/17/17 09:46 Chloride 111.0 mmol/L (98-107) H 12/17/17 09:46 Glucose 94 mg/dl (65-105) 12/17/17 09:46 Lactate 0.7 mmol/L (0.7-2.1) 12/17/17 09:46 FiO2 21.0 % 12/17/17 09:46 Sodium 138 mmol/L (132-148) 12/16/17 11:30 Potassium 3.9 mmol/L (3.6-5.0) 12/16/17 11:30 Chloride 105 mmol/L (98-107) 12/16/17 11:30 Carbon Dioxide 27 mmol/L (21-33) 12/16/17 11:30 Anion Gap 10 (10-20) 12/16/17 11:30 BUN 11 mg/dL (7-21) 12/16/17 11:30 Creatinine 0.4 mg/dl (0.7-1.2) L 12/16/17 11:30 Est GFR ( Amer) > 60 12/16/17 11:30 Est GFR (Non-Af Amer) > 60 12/16/17 11:30 Random Glucose 109 mg/dL (70-110) 12/16/17 11:30 Calcium 8.7 mg/dL (8.4-10.5) 12/16/17 11:30 Magnesium 1.9 mg/dL (1.7-2.2) 12/15/17 23:55 Iron 31 ug/dL (45-180) L 12/16/17 11:30 TIBC 431 ug/dL (265-497) 12/16/17 11:30 % Saturation 7 % (20-55) L 12/16/17 11:30 Total Bilirubin 0.4 mg/dL (0.2-1.3) 12/16/17 11:30 AST 19 U/L (14-36) 12/16/17 11:30 ALT 29 U/L (7-56) 12/16/17 11:30 Alkaline Phosphatase 57 U/L (38-126) 12/16/17 11:30 Lactate Dehydrogenase 415 U/L (333-699) 12/15/17 23:55 Total Creatine Kinase < 20 U/L (35-230) L 12/15/17 23:55 Troponin I < 0.01 ng/mL 12/16/17 11:30 Total Protein 6.4 g/dL (5.8-8.3) 12/16/17 11:30 Albumin 3.7 g/dL (3.0-4.8) 12/16/17 11:30 Globulin 2.7 gm/dL 12/16/17 11:30 Albumin/Globulin Ratio 1.4 (1.1-1.8) 12/16/17 11:30 Beta HCG, Quant 8.94 mIU/mL (0-6.15) H 12/17/17 18:17 Arterial Blood Potassium 3.4 mmol/L (3.6-5.2) L 12/17/17 09:46 Urine Opiates Screen Positive (NEGATIVE) H 12/17/17 11:30 Urine Methadone Screen Negative (NEGATIVE) 12/17/17 11:30 Ur Barbiturates Screen Negative (NEGATIVE) 12/17/17 11:30 Ur Phencyclidine Scrn Negative (NEGATIVE) 12/17/17 11:30 Ur Amphetamines Screen Negative (NEGATIVE) 12/17/17 11:30 U Benzodiazepines Scrn Negative (NEGATIVE) 12/17/17 11:30 U Oth Cocaine Metabols Negative (NEGATIVE) 12/17/17 11:30 U Cannabinoids Screen Negative (NEGATIVE) 12/17/17 11:30 Attending/Attestation - Attestation I have personally seen and examined this patient.: Yes I have fully participated in the care of the patient.: Yes I have reviewed all pertinent clinical information, including history, physical exam and plan: Yes Notes (Text): 12/19/17 14:10 attending note; Patient seen and examined with resident. Patient is a 47 year old female with past medical history significant for asthma and ?pulmonary emboli that presented to the emergency room with chest pain and shortness of breath. Patient's story is Unreliable. Patient has been to multiple hospitals. Patient does not give any information about her PMD/pharmacy. 1. Chest pain. Shortness of breath. Patient is resting comfortably. Shortness of breath appears to be resolved at rest. V/Q scan here shows low probability for PE. Continue Lovenox. cardiology evaluation appreciated. Patient is cleared for discharge with outpatient workup. 2.Thrombocytosis. Unclear etiology. Patient refusing blood work. Unable to follow up repeat labs. Importance of compliance discussed at length with patient. 3.Anemia. Chronic. No signs of acute bleeding. 4. Elevated Beta-Hcg. patient refused ultrasound. Patient refused repeat bhcg. States last menstrual period was 12/04/17. 5.obesity; diet, exercise and weight reduction advised. Patient stated that she has one month supply of Lovenox given by [facility]. Patient is requesting only pain medication. Patient does not appear to be in pain. Possible pain seeking behavior. Patient will be discharged home Today. Follow-up with [facility]. Case discussed in detail with patient regarding current diagnosis and treatment plan.
--- NOTE | 2017-12-19 08:13 | CON ---
DATE: 12/18/2017 LOCATION: The patient is in room 374, bed 1. REASON FOR CONSULTATION: Chest pain. The patient's consultation has already been dictated by Viktoriya Rich and I am dictating this addendum. I evaluated the patient. The patient has a sharp chest pain on localized . She says she has the same pain which she has on and went to [facility] and was told pulmonary embolism and was put on Lovenox, but lung scan here is low probability, so I have my doubts about the diagnosis of pulmonary embolism on at [facility] and the patient says when she takes a deep breath, the pain gets worse. She was in deep sleep when I went to examine her and as she woke up, she says she has severe chest pain. My impression is the patient's chest pain is atypical and I have doubts about the diagnosis of pulmonary embolism few days ago, so I will suggest to try to get the reports from [facility] in [place] to see if she has positive lung scan which according to her she is saying that. I offered her NSAID, but she says she is allergic to that and she wants injections for the pain. I advised her that from cardiac point of view, she can be discharged and followed with her physician as outpatient and if she has pulmonary embolism and when she healed up from that then she should do a nuclear stress test as outpatient and also advise her to lose weight. Bolivar Waters MD
== END 2017-12-18 14:36 | disposition home or self-care (01) | DRG 143 ==
LOC: ED 19:19 → ERH 12-16 02:28 → 3RSO 12-16 04:48 → OBSVTOIN 12-17 07:37
PROVIDERS: ADMIT Internal Medicine; ATTEND Hospitalist
PROC: 3E0F7GC Introduction of Other Therapeutic Substance into Respiratory Tract, Via Natural or Artificial Opening (ICD-10-PCS; principal; 2017-12-17)
DX: R07.89 Other chest pain (principal); Z86.711 Personal history of pulmonary embolism; J45.909 Unspecified asthma, uncomplicated; E66.01 Morbid (severe) obesity due to excess calories; Z68.42 Body mass index [BMI] 45.0-49.9, adult; D64.9 Anemia, unspecified; I49.3 Ventricular premature depolarization; Z82.49 Family history of ischemic heart disease and other diseases of the circulatory system; Z88.6 Allergy status to analgesic agent

== ENCOUNTER 2018-05-19 06:38 | Emergency (ER) | payer MEDICAID, OTHER ==
[2018-05-19 06:44] VITALS: BMI 49.1
[2018-05-19 06:56] VITALS: TEMP 98
--- NOTE | 2018-05-19 07:12 | ED PDOC ---
Arrival/HPI - General Historian: Patient - History of Present Illness Narrative History of Present Illness (Text): 05/19/18 07:55 48F w/ a PMH of multiple PE, Asthma presenting to [facility] ED on 05/19 w/ c/o hemoptysis + pleuritic CP ongoing x1 week previously seen at [facility] ED for s imilar complaints. Patient reported that she has been having similar symptoms on and off over the past 5-6 days. Patient is reporting table spoons worth of blood associated w/ coughing episodes; sputum is grossly bloody. She reports associated pleuritic chest pain which is a mid sternal stabbing sensation worsened w/ deep breath and cough; not associated w/ exertion or radiation into her L arm. Patient reports mild SOB however says this is 2/2 aformentioned chest pain. Upon ROS patient is complaining of ongoing nausea/vomiting w/ 3 episodes of nonblody emesis; she reports some light headedness upon changing position; and also complains of dark sticky stools. Remainder of 12 system ROS is otherwise negative PMH: As above PSH: Appendectomy, Cholecystectomy, Tubal ligation, IVC Filter - 2014 Home Rx: Lovenox 130 BID PMD: Denies Allergies: Patient reported anaphylaxis w/ contrast, nsaid, and toradol; remainder of allergies as per EMR Social: Denies Tobacco use, EtOH use in her 20s - no longer drinks, denies illicit drug use, denies Rx opiate use Time/Duration: Prior to Arrival, 1 week Symptom Onset: Gradual Symptom Course: Unchanged <Tobias Sanchez - Last Filed: 05/19/18 13:05> <Phuc Galarza - Last Filed: 05/19/18 16:39> - General Chief Complaint: Chest Pain Time Seen by Provider: 05/19/18 07:05 Past Medical History - Provider Review Nursing Documentation Reviewed: Yes - Infectious Disease Hx of Infectious Diseases: None - Tetanus Immunization Tetanus Immunization: Up to Date - Reproductive Currently : No - Cardiac Hx Atrial Fibrillation: No Hx Cardiac Arrhythmia: No Hx Congestive Heart Failure: No Hx Hypertension: No Hx Mitral Valve Prolapse: No Hx Pacemaker: No Hx Peripheral Edema: No - Pulmonary Hx Asthma: Yes Hx Bronchitis: No Hx Chronic Obstructive Pulmonary Disease (COPD): No Hx Emphysema: No Hx Pneumonia: No Hx Pulmonary Embolism: Yes Hx Sleep Apnea: No - Neurological Hx Alzheimer's Disease: No Hx Dementia: No Hx Migraine: No Hx Multiple Sclerosis: No Hx Parkinson's Disease: No Hx Seizures: No Hx Transient Ischemic Attacks (TIA): No - HEENT Hx HEENT Disorder: No - Renal Hx Renal Disorder: Yes Hx Kidney Stones: Yes - Endocrine/Metabolic Hx Hyperthyroidism: No Hx Hypothyroidism: No - Hematological/Oncological Hx Anemia: No Hx Sickle Cell Disease: No - Integumentary Hx Dermatological Disorder: No - Musculoskeletal/Rheumatological Hx Arthritis: No Hx Fractures: No Hx Osteoporosis: No Hx Rheumatoid Arthritis: No - Gastrointestinal Hx Crohn's Disease: No Hx Diverticulitis: No Hx Gall Bladder Disease: Yes Hx Gastritis: No Hx Gastrointestinal Ulcer: No Hx Pancreatitis: No - Genitourinary/Gynecological Hx Sexually Transmitted Diseases: No - Psychiatric Hx Anxiety: No Hx Bipolar Disorder: No Hx Depression: No Hx Post Traumatic Stress Disorder: No Hx Schizophrenia: No Hx Substance Use: No - Surgical History Hx Appendectomy: Yes Hx Carotid Endarterectomy: No Hx Cholecystectomy: Yes Hx Coronary Artery Bypass Graft: No Hx Coronary Stent: No Hx Tonsillectomy: No - Anesthesia Hx Anesthesia: Yes Hx Anesthesia Reactions: No Hx Malignant Hyperthermia: No - Suicidal Assessment Feels Threatened In Home Enviroment: No <Tobias Sanchez - Last Filed: 05/19/18 13:05> Family/Social History - Physician Review Nursing Documentation Reviewed: Yes Family/Social History: Unknown Family HX Smoking Status: Never Smoked Hx Alcohol Use: No Hx Substance Use: No Hx Substance Use Treatment: No <Tobias Sanchez - Last Filed: 05/19/18 13:05> Allergies/Home Meds <Tobias Sanchez - Last Filed: 05/19/18 13:05> <Phuc Galarza - Last Filed: 05/19/18 16:39> Allergies/Adverse Reactions: Allergies acetaminophen [From Percocet] Allergy (Verified 05/19/18 06:45) RASH ibuprofen [From Motrin] Allergy (Verified 05/19/18 06:45) SHORTNESS OF BREATH Iodine and Iodide Containing Produc Allergy (Verified 05/19/18 06:45) SHORTNESS OF BREATH ketorolac Allergy (Verified 05/19/18 06:45) ITCHING NSAIDS (Non-Steroidal Anti-Inflamma Allergy (Verified 05/19/18 06:45) ITCHING ondansetron Allergy (Verified 05/19/18 06:45) ITCHING oxycodone [From Percocet] Allergy (Verified 05/19/18 06:45) RASH iodixanol Adverse Reaction (Severe, Verified 05/19/18 06:45) ANAPHYLAXIS Home Medications: Home Meds Medication Instructions Recorded Confirmed RX: Enoxaparin [Lovenox] 130 mg SC BID 05/19/18 05/19/18 Review of Systems - Physician Review All systems were reviewed & negative as marked: Yes - Review of Systems Constitutional: Normal Eyes: Normal ENT: Normal Respiratory: Cough (hemoptysis) Cardiovascular: Chest Pain (midsternal + pleuritic ) Gastrointestinal: Nausea, Vomiting, Other (Melena). absent: Abdominal Pain, Constipation, Hematochezia Genitourinary Female: Normal Musculoskeletal: Normal Skin: Normal Neurological: Dizziness (light headedness ) Endocrine: Normal Hemo/Lymphatic: Normal Psychiatric: Normal <Tobias Sanchez - Last Filed: 05/19/18 13:05> Physical Exam Vital Signs Reviewed: Yes Vital Signs Temp Pulse Resp Pulse Ox 05/19/18 06:52 98 F 125 H 20 97 Temperature: Afebrile Blood Pressure: Normal Pulse: Tachycardic Respiratory Rate: Normal Appearance: Positive for: Well-Appearing, Non-Toxic, Comfortable Pain Distress: None Mental Status: Positive for: Alert and Oriented X 3 - Systems Exam Head: Present: Atraumatic, Normocephalic Pupils: Present: PERRL Extroacular Muscles: Present: EOMI Mouth: Present: Moist Mucous Membranes Respiratory/Chest: Present: Clear to Auscultation, Good Air Exchange. No: Respiratory Distress Cardiovascular: Present: Normal S1, S2, Tachycardic. No: Murmurs Abdomen: No: Tenderness, Distention Lower Extremity: Present: Capillary Refill < 2 s Neurological: Present: GCS=15, CN II-XII Intact Skin: Present: Warm, Dry Psychiatric: Present: Alert, Oriented x 3, Normal Insight, Normal Concentration <Tobias Sanchez - Last Filed: 05/19/18 13:05> Vital Signs Temp Pulse Resp Pulse Ox 05/19/18 06:52 98 F 125 H 20 97 <Phuc Galarza - Last Filed: 05/19/18 16:39> Medical Decision Making ED Course and Treatment: 05/19/18 08:06 48F w/ multiple PE on therapeutic lovenox w/ c/o N/V, Melena, Hemoptysis, SOB 2/2 pleuritic CP Patient was recently seen in ER 1 week ago for similar complaints; Recently admitted to [facility] for similar complaints as well EKG Troponin DDimer CBC/CMP Orthostatics 1L Bolus Reglan Pepcid 05/19/18 08:38 FOBT Negative D-Dimer mildly elevated >> Will perform VQ Scan Still complaining of some chest pain w/ cough/ deep inspiration Despite allergy listed in EMR patient reported that she can tolerate tylenol which only gives her itching Will admin 650mg acetaminophen w/ 50mg benadryl 05/19/18 13:06 VQ scan results reviewed - normal VQ scan no perfusion defect Patient reassed - no episodes of hemoptysis while here in ED Pt. Still complaining of chest pain Reassured that VQ scan was normal HR improved w/ fluid bolus GI Bleed less likely given negative FOBT Troponin negative EKG w/o ischemic changes - less likely cardiac in nature Patient offered multiple nonnarcotic analgesic alternatives as well as tramadol - patient refusing all at this time Patient instructed to follow up w/ Dr. Vargas [facility] - RAD Interpretation Narrative RAD Interpretations (Text): 05/19/18 10:39 Mild Bibasilar Atelectasis Crm System Administrator: Radiologist - EKG Interpretation EKG Interpretation (Text): 05/19/18 08:11 EKG - Sinus tachy HR 129 - No ST/T wave changes 05/19/18 08:12 Interpreted by ED Physician: Yes Type: 12 lead EKG <Tobias Sanchez - Last Filed: 05/19/18 13:05> ED Course and Treatment: 05/19/18 08:12 Patient is a 48 year old female presenting to the emergency room complaining of shortness of breath, nausea, vomiting, melena, and hemoptysis for the past 1 week. She's had several episodes of vomiting and not drinking enough fluids. Note, previous patient records show Negative VQ scans on the following dates: 08/11/17, ,03/16/18, 04/21/18, and a Negative CT angio on 11/11/17. In agreement with resident note, which includes further HPI details. Patient was seen and evaluated with resident, came up with plan and treatment together. Plan: -- EKG -- Labs -- D Dimer -- COAGs -- Chest X-ray -- Reglan -- Pepcid -- IV fluids -- Reassess and disposition EKG: Ordered, reviewed, and independently interpreted the EKG. Rate : 129 BPM Rhythm : Sinus tachycardia 05/19/18 13:06 She was given tylenol for pain. She says she's gotten an itchiness with tylenol before so we premedicated with Benadryl IV. This helped her pain which is described as body pain but also chest pain. She is allergic for ibruprofen and toradol. She refused tramadol because it says it makes her nauseous. She doesn't want percocet. She says only Morphine helps her. She is exhibiting manipulative behavior. Previous records show similar clinical presentations and drug seeking behavior. Dimer was mildly elevated. Patient is allergic to IV contrast to a VQ scan was obtained. VQ scan results are negative. Ready by Dr. Nomi Sullivan by faxed report as Normal VQ scan based on modified PIOPED criteria. Patient was explained results. Patient saturating at 98-100% on room air throughout her ED stay. She did not exhibit any signs of respirator distress. Her HR improved with IVF as soon as soon as she received a completion of 2 L NS. She appeared much better clinically. She is aware of her PE history so will continue to take her eliquis. She was reluctant to leave but she then agreed that she would try to eat something. She ate a meal comfortable in the ED. As I observed her throughout her ED stay she had no hemoptyosis and did not appear in any painful or respiratory distress. I advised her that she can follow up with the [facility] with Dr. Vargas. She was advised to return to the ED if symptoms worsen or any other concern. - Lab Interpretations Lab Results: PT 13.2 SECONDS (9.4-12.5) H 05/19/18 07:25 INR 1.17 05/19/18 07:25 APTT 30.0 Seconds (26.9-38.3) 05/19/18 07:25 Total Bilirubin 1.0 mg/dL (0.2-1.3) 05/19/18 07:25 Total Protein 8.2 g/dL (5.8-8.3) 05/19/18 07:25 Albumin 4.9 g/dL (3.0-4.8) H 05/19/18 07:25 Globulin 3.4 gm/dL 05/19/18 07:25 Albumin/Globulin Ratio 1.4 (1.1-1.8) 05/19/18 07:25 - RAD Interpretation Radiology Orders: 05/19/18 07:26 CHEST PORTABLE [RAD] Stat - Medication Orders Current Medication Orders: Sodium Chloride (Sodium Chloride 0.9%) 1,000 mls @ 999 mls/hr IV .Q1H1M STA Stop: 05/19/18 08:27 Last Admin: 05/19/18 07:45 Dose: 999 mls/hr eMAR Start Stop Document 05/19/18 07:45 BROWN (Rec: 05/19/18 08:00 BROWN [id number]) Intravenous Solution Start Date 05/19/18 Start Time 07:45 End Date 05/19/18 End time 08:45 Total Infusion Time 60 Famotidine (Pepcid 20mg/50ml Premix) 20 mg in 50 mls @ 100 mls/hr IVPB STAT STA Stop: 05/19/18 08:17 Last Admin: 05/19/18 08:01 Dose: 100 mls/hr eMAR Start Stop Document 05/19/18 08:01 BROWN (Rec: 05/19/18 08:01 BROWN [id number]) Intravenous Solution Start Date 05/19/18 Start Time 08:01 End Date 05/19/18 End time 08:20 Total Infusion Time 19 Discontinued Medications Metoclopramide HCl (Reglan) 10 mg IVP STAT STA Stop: 05/19/18 07:41 Last Admin: 05/19/18 08:00 Dose: 10 mg IVP Administration Document 05/19/18 08:00 BROWN (Rec: 05/19/18 08:00 BROWN [id number]) Charges for Administration # of IVP Administrations 1 <Phuc Galarza - Last Filed: 05/19/18 16:39> - PA / RESIDENTIAL DIRECTOR / Resident Statement MARIANA has reviewed & agrees with the documentation as recorded. MD/DO has examined the patient and agrees with the treatment plan. - Scribe Statement The provider has reviewed the documentation as recorded by the Leon Wong All medical record entries made by the Natibefren were at my direction and personally dictated by me. I have reviewed the chart and agree that the record accurately reflects my personal performance of the history, physical exam, medical decision making, and the department course for this patient. I have also personally directed, reviewed, and agree with the discharge instructions and disposition. <Phuc Galarza - Last Filed: 05/19/18 16:39> Disposition/Present on Arrival - Present on Arrival Any Indicators Present on Arrival: Yes History of DVT/PE: Yes History of Uncontrolled Diabetes: No Urinary Catheter: No History of Decub. Ulcer: No History Surgical Site Infection Following: None - Disposition Have Diagnosis and Disposition been Completed?: Yes Disposition Time: 13:12 Patient Plan: Discharge <Tobias Sanchez - Last Filed: 05/19/18 13:05> <Phuc Galarza - Last Filed: 05/19/18 16:39> - Disposition Diagnosis: Chest discomfort, Hemoptysis Disposition: HOME/ ROUTINE Patient Problems: Current Active Problems Problem Status Onset Chest discomfort Acute Hemoptysis Acute Condition: STABLE Discharge Instructions (ExitCare): Chest Pain That Is Not Caused by the Heart (DC) Additional Instructions: JUAN SIMONS, thank you for letting us take care of you today. Your provider was Phuc Galarza DO/ Tobias Sanchez DO and you were treated for bloody sputum with coughing, and chest pains. The emergency medical care you received today was directed at your acute symptoms. If you were prescribed any medication, please fill it and take as directed. It may take several days for your symptoms to resolve. Return to the Emergency Department if your symptoms worsen, do not improve, or if you have any other problems. Please contact your doctor or call one of the physicians/clinics you have been referred to that are listed on the Patient Visit Information form that is included in your discharge packet. Bring any paperwork you were given at discharge with you along with any medications you are taking to your follow up visit. Our treatment cannot replace ongoing medical care by a primary care provider outside of the emergency department. You indicated that you did not have a primary care doctor: Please contact [phone] to schedule an appointment to establish care with a [facility] Physician. Thank you for allowing the [employer] team to be part of your care today. If you had an X-Ray or CT scan: A Radiologist will review the ED reading if any change in treatment is needed we will contact you. If you had a blood, urine, or wound culture: It will take several days for the results, if any change in treatment is needed we will contact you. If you had an STI test: It will take 48 hours for the results. Please call after 1 week if you have not heard back. Referrals: PCP,NO [Primary Care Provider] - Follow up with primary Forms: [employer] ([place])
[2018-05-19] MEDS ORDERED: Sodium Chloride 0.9% 1,000 ML IV STA ×2 (07:27→09:57)
[2018-05-19 07:44] LABS: BASO # 0.14 K/mm3 (0.0-2.0); BASO % 1.2 % (0.0-3.0); EOS # 0.7 (0.0-0.7); HEMOGLOBIN 12.4 g/dL (12.0-16.0); LYMPH # 2.3 (1.2-3.4); LYMPH % 19.2 % (22.0-35.0); MEAN CELL VOLUME 75.9 fl (80.0-105.0); MEAN CORPUSCULAR HEMOGLOBIN 23.6 pg (25.0-35.0); MEAN CORPUSCULAR HGB CONC 31.1 g/dl (31.0-37.0); MEAN PLATELET VOLUME 9.7 fl (7.0-11.0); MONO # 1.7 (0.1-0.6); RBC 5.26 10^6/uL (3.5-6.1); RED CELL DISTRIBUTION WIDTH 17.5 % (11.5-14.5); WHITE BLOOD COUNT 12.1 10^3/uL (4.5-11.0)
[2018-05-19] MEDS ORDERED: Famotidine 20mg/50ml 20 MG/50 ML BAG IVPB STA (07:48)
[2018-05-19 08:03] LABS: INR 1.17; PROTHROMBIN TIME 13.2 SECONDS (9.4-12.5)
[2018-05-19 08:11] LABS: ALB/GLOB RATIO 1.4 (1.1-1.8); ALBUMIN 4.9 g/dL (3.0-4.8); BLOOD UREA NITROGEN 19 mg/dL (7-21); CALCIUM 9.7 mg/dL (8.4-10.5); GFR NON-AFRICAN AMERICAN > 60
[2018-05-19 08:22] LABS: ALT/SGPT 27 U/L (7-56); AST/SGOT 87 U/L (14-36); TROPONIN I < 0.01 ng/mL
[2018-05-19] MEDS ORDERED: DiphenhydrAMINE 50 mg/ml Inj IVP STA (08:37)
--- NOTE | 2018-05-19 10:00 | RAD ---
Date of service: 05/19/2018 HISTORY: Chest pain COMPARISON: Comparison made with chest radiograph 12/16/2017. FINDINGS: LUNGS: Minor bibasilar atelectasis PLEURA: No significant pleural effusion identified, no pneumothorax apparent. CARDIOVASCULAR: No aortic atherosclerotic calcification present. Normal cardiac size. No pulmonary vascular congestion. OSSEOUS STRUCTURES: No significant abnormalities. VISUALIZED UPPER ABDOMEN: Normal. OTHER FINDINGS: None. IMPRESSION: Minor bibasilar atelectasis.
[2018-05-19 10:09] VITALS: RESP 20
[2018-05-19 18:50] VITALS: BP 128/74; PULSE 98; O2SAT 99
--- NOTE | 2018-05-19 20:07 | CARD ---
APPROVED REPORT Date of service: 05/19/2018 EKG Measurement Heart [id number] <Conclusion> Sinus tachycardia Left ventricular hypertrophy with repolarization abnormality Abnormal ECG
--- NOTE | 2018-05-21 10:40 | NM ---
Date of service: 05/19/2018 COMPARISON: 05/19/2018. Single-view chest TECHNIQUE: 30.0 mCi technetium 99-m DTPA aerosol. 4.3 mCI technetium 99-m MAA administered intravenously. FINDINGS: VENTILATION COMPONENT: Normal. PERFUSION COMPONENT: Normal. IMPRESSION: Normal ventilation perfusion scan for pulmonary embolism. Concordant findings (preliminary report) provided by [facility].
== END 2018-05-19 16:00 | disposition home or self-care (01) ==
LOC: ED 06:38
DX: R04.2 Hemoptysis (principal); R07.9 Chest pain, unspecified; J45.909 Unspecified asthma, uncomplicated; Z86.711 Personal history of pulmonary embolism
CPT/HCPCS: 71045; 78582; 80053; 81025; 82550; 83615; 83735; 84484; 85025; 85378; 85610; 85730; 93005; 96361; 96365; 96375; 99284; A9540; J1200; J2765; J7030